=== PATIENT | female | born 1960 | race Caucasian/White ===

== ENCOUNTER 2018-01-08 08:53 | Day surgery (SDC) | payer MEDICARE, OTHER, SELFPAY ==
[2018-01-08 09:14] VITALS: BP 123/72; PULSE 65; RESP 20; TEMP 37.2; O2SAT 93
--- NOTE | 2018-01-08 09:18 | P.PN_ITS ---
[facility] Anesthesia Checklist - Patient Identification Patient Identification: Arm Band, Verbal (Name & ) - Structural Data Admitted From: Home Planned Operative Procedure/s: colonoscopy Consent for Planned Operative Procedure(s) Verified: Yes Verified Documents: Surgical Consent - NPO Status Verified Time NPO: 00:00 - Chart Verification Results Verified: CBC, BMP - Additional verifications Patient : No Anesthesia Reactions: No Hx Blood Transfusions: No Blood Transfusion Reaction: No Cephalosporin Allergy: No Previous Colonoscopy: No - Cardiovascular Assessment Heart Sounds: S1 & S2 Pulse Strength: Baseline Pulse Rhythm: Regular Peripheral Edema: No - Airway Assessment C-Spine Mobility Assessed: Yes TMJ Mobility Assessed: Yes Dentition: Good Dentition - Neurological Assessment Level of Consciousness: Awake, Alert, Appropriate Hx Seizures: No Numbness or tingling in extremities: No - Anesthesia Plan Anesthesia Risk discussed: Yes Anesthesia Plan: Verified ASA Class: II Anesthesia Type: [facility] Anesthesia HX I have reviewed the patient's past medical history: Yes Medical History: Reports:: Anxiety, Depression, Hyperlipidemia, Kidney Stones Other Medical History: Reports: Arthritis, Fibromyalgia Laterality Cases: Bilateral: Tonsillectomy Other Surgeries: Yes: Colonoscopy, EGD, Tubal Ligation, Other (ant. cervical fusion) Amputation: No Fractures: No *Family Hx:: Hypertension, Diabetes, Asthma
[2018-01-08 09:31] VITALS: O2SAT 99
--- NOTE | 2018-01-08 10:24 | HMH.SCOPE ---
- Procedure: Date: 01/08/18 Procedure Performed:: Colonoscopy with polypectomy by means other than snare (biopsy) Indications:: This is a 57-year-old female who returns for short-term repeat colonoscopy. She had a colonoscopy in October 2017 at which time adjacent complex pedunculated polyps at 20 cm were excised and found to be hyperplastic. Exceedingly poor bowel preparation was noted and visualization was limited. Performing Provider:: Jonel Greenfield MD Referring Provider:: Dr. Hook Sedation:: Monitored anesthesia care Procedure:: After informed consent was obtained, the patient was taken to the endoscopy suite. Monitored anesthesia care ensued after she was transferred to the left lateral decubitus position. Digital rectal exam revealed some hemorrhoidal cushions. The colonoscope was placed in position. The entire colon was evaluated. Bowel preparation was moderate to poor with large volume irrigation and suctioning used to improve visualization. Although visualization was somewhat limited, bowel preparation was much better than prior evaluation. Unfortunately, she also had fairly severe spasticity. A cluster polyps at 20 cm were noted and these appeared to be hyperplastic. Multiple biopsies which resulted in 3 polypectomies were taken. A distal transverse colon polyp was excised with cold biopsy forceps. A somewhat pedunculated splenic flexure polyp was excised in a piecemeal fashion utilizing cold biopsy forceps. Polyp at 7 cm was excised in a piecemeal fashion utilizing cold biopsy forceps. No additional lesions noted. The colonoscope was carefully removed and the patient was transferred to recovery. Findings:: Moderate to poor bowel preparation (improved versus prior evaluation) Fairly severe colonic spasticity Cluster polyps at 20 cm Transverse polyp Pedunculated splenic flexure polyp Polyp at 7 cm Specimens:: Cluster polyps at 20 cm Transverse polyp Pedunculated splenic flexure polyp Polyp at 7 cm Recommendations:: Consideration of barium enema secondary to fairly severe spasticity and limited visualization. Repeat colonoscopy is pending pathology but will likely be around 2-3 years if barium enema reveals no significant abnormality. Complications:: No immediate Estimated blood obtained (mL): 1
[2018-01-08 10:25] VITALS: BP 118/77; PULSE 100; RESP 16; O2SAT 95
[2018-01-08 10:40] VITALS: BP 126/72; PULSE 92; RESP 18; O2SAT 97
[2018-01-08 10:55] VITALS: BP 118/88; PULSE 90; RESP 18; O2SAT 97
== END 2018-01-08 10:55 | disposition home or self-care (01) ==
LOC: OUTP 08:55
PROVIDERS: Family Provider Emergency Medicine; PCP Emergency Medicine; Visit Provider Surgery
PROC: 0DJD8ZZ Inspection of Lower Intestinal Tract, Via Natural or Artificial Opening Endoscopic (ICD-10-PCS; principal; 2018-01-08 09:30)
DX: K58.9 Irritable bowel syndrome, unspecified (principal); K63.5 Polyp of colon
CPT/HCPCS: 45380; 88305

== ENCOUNTER → 2018-03-13 11:07 | Outpatient (CLI) | payer MEDICARE, OTHER, SELFPAY ==
--- NOTE | 2018-03-13 11:07 | MR_ITS ---
MR knee LT wo con HISTORY: The medial and lateral patellar area ITS.REASON: knee pain ORDERING PHYSICIAN: Young Jean MD PATIENT AGE: 58 years COMPARISON: [id number] TECHNIQUE: Standard multiplanar multiecho sequences are performed without contrast. FINDINGS: The cruciate ligaments, collateral ligaments, patellar and quadriceps tendon are intact. No evidence of meniscal tear. Small defect in the central aspect of the patellar cartilage with some underlying increased T2 signal involving the adjacent patella consistent with chondromalacia patella. There is a small knee joint effusion. No bone marrow edema evident of the distal femur or proximal tibia. The joint spaces are well-preserved. IMPRESSION: 1. 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 2. Otherwise negative MRI of the left knee
== END ==
PROVIDERS: Family Provider Emergency Medicine; PCP Emergency Medicine; Visit Provider Orthopaedic Surgery
DX: M25.562 Pain in left knee (principal); G89.29 Other chronic pain
CPT/HCPCS: 73721

== ENCOUNTER → 2018-04-06 15:15 | Outpatient (REF) | payer MEDICARE, OTHER, SELFPAY ==
[2018-04-06 21:59] LABS: Amphetamine/Metha Screen,Urine Negative ng/mL (<1000); Barbiturates Screen,Urine Negative ng/mL (<200); Benzodiazepines Screen,Urine Positive ng/mL (200); Cannabinoid Screen,Urine Negative ng/mL (<50); Cocaine Screen,Urine Negative ng/g (<300); Methadone Screen,Urine Negative ng/mL (<300); Opiate Screen,Urine Negative ng/mL (<300); Phencyclidine Screen,Urine Negative ng/mL (<25)
== END ==
LOC: LAB 15:15
PROVIDERS: Visit Provider Emergency Medicine
DX: Z79.899 Other long term (current) drug therapy (principal)
CPT/HCPCS: 80305

== ENCOUNTER → 2018-04-24 12:49 | Outpatient (CLI) | payer MEDICARE, OTHER, SELFPAY ==
--- NOTE | 2018-04-24 12:53 | XR_ITS ---
EXAM: XR thoracic spine 3V HISTORY: ITS.REASON: Back Pain Comparison: None FINDINGS: Normal alignment. No fracture or dislocation. No lytic or blastic change. No significant degenerative change. The disc spaces are preserved. There is been a previous anterior cervical fusion C6 and 7 IMPRESSION: No acute finding
--- NOTE | 2018-04-24 12:53 | XR_ITS ---
XR ribs LT 2V COMPARISON: PA and lateral chest same date HISTORY: Left sided rib pain TECHNIQUE: Oblique views of the left ribs FINDINGS: All the left ribs 1 through 12 are visualized and appear intact with no evidence of recent or old fracture. The left lung field is clear and is no pneumothorax. The soft tissues in the chest wall appear normal. IMPRESSION: Negative left ribs 1 through 12
--- NOTE | 2018-04-24 12:53 | XR_ITS ---
XR chest 2V HISTORY: ITS.REASON: Pain under rib ORDERING PHYSICIAN: Christopher Hook MD PATIENT AGE: 58 years COMPARISON: PA and lateral chest 05/04/2009 FINDINGS: The cardiomediastinal silhouette and pulmonary vascularity are within normal limits. The lungs are clear without infiltrates, suspicious nodules, or pleural effusions. No acute bony abnormalities. There is been previous anterior cervical fusion C6 and 7 IMPRESSION: Negative chest, no acute finding
== END ==
PROVIDERS: PCP Emergency Medicine; Visit Provider Emergency Medicine
DX: R07.81 Pleurodynia (principal); M54.6 Pain in thoracic spine
CPT/HCPCS: 71046; 71100; 72072

== ENCOUNTER → 2018-05-08 12:58 | Outpatient (CLI) | payer MEDICARE, OTHER, SELFPAY ==
--- NOTE | 2018-05-08 13:00 | MR_ITS ---
MR cervical spine wo con, MR 3-d myelogram/MRCP HISTORY: PT states neck and mid back pain since OCT. All pain is mostly on left side. LT arm pain, numbness and tingling at times. PT states prior neck surgery in 2016. ITS.REASON: neck pain ORDERING PHYSICIAN: Christopher Hook MD PATIENT AGE: 58 years Comparison: None TECHNIQUE: Standard multiplanar multiecho sequences are performed without contrast. 3-D MIP and myelographic images are also rendered and reviewed FINDINGS: There is normal alignment. Craniocervical junction has an unremarkable appearance. There is a small T2 hyperintensities involving the base of the odontoid and may be due to a small subcortical cyst at 3 mm. C2-C3: Mild degenerative disc disease Small left disc osteophyte complex at the uncovertebral region causing mild left-sided foraminal narrowing. C3-C4: Mild degenerative disc disease with minimal bulging disc. C4-C5 degenerative disc disease with minimal bulging disc. C5-C6: Prior anterior cervical disc fusion with prominent artifact. Mild uncovertebral hypertrophy on the left with mild left-sided foraminal narrowing. C6-C7: Degenerative disc disease. IMPRESSION: 1. No canal stenosis or disc herniation evident. 2. Prior anterior cervical disc fusion at 3. Spondylosis of the cervical spine with degenerative disc disease from C2-C7 with minimal bulging discs. 4. Small left disc osteophyte complex at C3-C4 at the uncovertebral region causing mild left-sided foraminal narrowing.
--- NOTE | 2018-05-08 13:00 | MR_ITS ---
MR thoracic spine wo con HISTORY: Mid back pain, left-sided back pain, pain starts under ribs on left side and extend to front of body ITS.REASON: back pain ORDERING PHYSICIAN: Christopher Hook MD PATIENT AGE: 58 years Comparison: X-RAY 04/24/18 TECHNIQUE: Standard multiplanar multiecho sequences are performed without contrast. 3-D MIP and myelographic images are also rendered and reviewed FINDINGS: Normal alignment. No fracture or dislocation. No disc herniation or canal stenosis. No significant degenerative change. IMPRESSION: Negative MRI of the thoracic spine
== END ==
PROVIDERS: Family Provider Emergency Medicine; PCP Emergency Medicine; Visit Provider Emergency Medicine
DX: M54.2 Cervicalgia (principal); M54.6 Pain in thoracic spine
CPT/HCPCS: 72141; 72146; 76376

== ENCOUNTER → 2018-05-25 14:44 | Outpatient (REF) | payer MEDICARE, OTHER, SELFPAY ==
[2018-05-25 17:47] LABS: Amphetamine/Metha Screen,Urine Negative ng/mL (<1000); Barbiturates Screen,Urine Negative ng/mL (<200); Benzodiazepines Screen,Urine Positive ng/mL (<200); Cannabinoid Screen,Urine Negative ng/mL (<50); Cocaine Screen,Urine Negative ng/mL (<300); Methadone Screen,Urine Negative ng/mL (<300); Opiate Screen,Urine Positive ng/mL (<300); Phencyclidine Screen,Urine Negative ng/mL (<25)
== END ==
LOC: LAB 14:44
PROVIDERS: Visit Provider Emergency Medicine
DX: Z79.899 Other long term (current) drug therapy (principal)
CPT/HCPCS: 80305

== ENCOUNTER → 2018-06-15 13:56 | Outpatient (POV) | payer MEDICARE, OTHER, SELFPAY ==
[2018-06-15 14:11] VITALS: BP 140/96; PULSE 87; RESP 18; O2SAT 98
--- NOTE | 2018-06-16 12:44 | HMH.PMCON ---
Assessment and Plan (1) Degenerative disc disease, cervical Current visit: Yes Status: Chronic Category: Medical Code(s): M50.30 - Other cervical disc degeneration, unspecified cervical region - Assessment and plan all Dx Assessment and Plan for all problems:: We will schedule C5-C6 cervical epidural steroid injection for the patient. Patient's tried and failed chiropractic therapy, physical therapy, medications, anti-inflammatories. Patient is not diabetic nor is she on any anticoagulation therapy. I believe that this would be beneficial for her given the therapy she is tried. Patient is continuing a home stretching therapy. I will follow-up with the patient 2 weeks after her injection. We will reassess her symptoms at that time. This note was dictated using voice recognition software and may contain errors or omissions HPI - Data of Consult Consult date: 06/16/18 Requesting Physician: Rachel Eagle APRN Primary Care Provider: Christopher Hook MD Family Provider: Christopher Hook MD - Consult Narrative Reason for consult: Back pain History of present illness: Ms. Holliday is a 58 year old female resents today for consultation in regards to her neck pain. Patient does have pain down her left arm. Patient had a fall back in August 2017. Patient has had increased pain ever since. She states that her pain is a 6 out of 10 today. He states that standing for long periods of time make it worse while medications and her heating pad make it better. Patient currently on gabapentin 800 mg 1 p.o. 3 times daily alprazolam 0.5 mg 1 p.o. 3 times daily and [place] 5 mg 1 p.o. twice daily from her primary care physician. Patient has tried and failed Lyrica due to side effects. Patient's tried and failed chiropractic and physical therapy. CC: Rachel Eagle APRN [facility] History I have reviewed the patient's past medical history: Yes Medical History: Reports:: Anxiety, Depression, Hyperlipidemia, Kidney Stones Denies:: Diabetes Mellitus Type 1, Diabetes Mellitus Type 2, Internal Pacemaker, Lung Disease, Seizures Other Medical History: Reports: Arthritis, Fibromyalgia. Denies: Blood Transfusion Reaction Laterality Cases: Bilateral: Tonsillectomy Other Surgeries: Yes: Colonoscopy, EGD, Tubal Ligation, Other (Disc infusion neck.). No: Pacemaker Amputation: No Fractures: No - *Social History Smoking Status: Never smoker Tobacco Type: cigarettes # Packs/Day (cigarettes): 1 Alcohol Intake: never Alcohol Intake Frequency:: other Substance Use Type: denies use Occupational Status: disabled Housing: house Household Members: spouse - Psychiatric History Expresses thoughts of harming self/others: None Suicide Plan Description: No Plan Pschychiatric History:: Reports:: Anxiety, Depression *Family Hx:: Cancer Review of Systems - Review of Systems ROS General: no recent weight change, no fever, no sleep disturbances Respiratory: no cough, no shortness of air, no recurring pulmonary infections Cardiovascular/Peripheral Vascular: No chest pain, No palpitations, no edema, no shortness of breath. Gastrointestinal: no incontinence, normal bowel movements reported Genitourinary: no incontinence Musculoskeletal: Neck pain, left arm pain Psychiatric: normal mood/ affect Neurological: [denies weakness in extremities], [denies balance issues] Meds Allergies Allergy/AdvReac Type Severity Reaction Status Date / Time No Known Allergies Allergy Verified 05/25/18 14:50 Objective Vital signs: Pulse Resp BP Pulse Ox 87 18 140/96 98 06/15/18 14:11 06/15/18 14:11 06/15/18 14:11 06/15/18 14:11 Narrative: Physical Exam General: Alert and oriented x3, no acute distress, pleasant and cooperative, [on room air] Lungs: Resps E/U, Symmetrical chest expansion, Eyes: PERRL Musculoskeletal: Flexion and extension of cervical spine somewhat guarded secondary to pain, deep tendon r
--- NOTE | 2018-06-16 12:53 | P.CONS_ITS ---
Assessment and Plan (1) Degenerative disc disease, cervical Current visit: Yes Status: Chronic Category: Medical Code(s): M50.30 - Other cervical disc degeneration, unspecified cervical region - Assessment and plan all Dx Assessment and Plan for all problems:: We will schedule C5-C6 cervical epidural steroid injection for the patient. Patient's tried and failed chiropractic therapy, physical therapy, medications, anti-inflammatories. Patient is not diabetic nor is she on any anticoagulation therapy. I believe that this would be beneficial for her given the therapy she is tried. Patient is continuing a home stretching therapy. I will follow-up with the patient 2 weeks after her injection. We will reassess her symptoms at that time. This note was dictated using voice recognition software and may contain errors or omissions HPI - Data of Consult Consult date: 06/16/18 Requesting Physician: Rachel Eagle APRN Primary Care Provider: Christopher Hook MD Family Provider: Christopher Hook MD - Consult Narrative Reason for consult: Back pain History of present illness: Ms. Holliday is a 58 year old female resents today for consultation in regards to her neck pain. Patient does have pain down her left arm. Patient had a fall back in August 2017. Patient has had increased pain ever since. She states that her pain is a 6 out of 10 today. He states that standing for long periods of time make it worse while medications and her heating pad make it better. Patient currently on gabapentin 800 mg 1 p.o. 3 times daily alprazolam 0.5 mg 1 p.o. 3 times daily and [place] 5 mg 1 p.o. twice daily from her primary care physician. Patient has tried and failed Lyrica due to side effects. Patient's tried and failed chiropractic and physical therapy. CC: Rachel Eagle APRN [facility] History I have reviewed the patient's past medical history: Yes Medical History: Reports:: Anxiety, Depression, Hyperlipidemia, Kidney Stones Denies:: Diabetes Mellitus Type 1, Diabetes Mellitus Type 2, Internal Pacemaker, Lung Disease, Seizures Other Medical History: Reports: Arthritis, Fibromyalgia. Denies: Blood Transfusion Reaction Laterality Cases: Bilateral: Tonsillectomy Other Surgeries: Yes: Colonoscopy, EGD, Tubal Ligation, Other (Disc infusion neck.). No: Pacemaker Amputation: No Fractures: No - *Social History Smoking Status: Never smoker Tobacco Type: cigarettes # Packs/Day (cigarettes): 1 Alcohol Intake: never Alcohol Intake Frequency:: other Substance Use Type: denies use Occupational Status: disabled Housing: house Household Members: spouse - Psychiatric History Expresses thoughts of harming self/others: None Suicide Plan Description: No Plan Pschychiatric History:: Reports:: Anxiety, Depression *Family Hx:: Cancer Review of Systems - Review of Systems ROS General: no recent weight change, no fever, no sleep disturbances Respiratory: no cough, no shortness of air, no recurring pulmonary infections Cardiovascular/Peripheral Vascular: No chest pain, No palpitations, no edema, no shortness of breath. Gastrointestinal: no incontinence, normal bowel movements reported Genitourinary: no incontinence Musculoskeletal: Neck pain, left arm pain Psychiatric: normal mood/ affect Neurological: [denies weakness in extremities], [denies balance issues] Meds Allergies Allergy/AdvReac Type Severity Reaction Status Date / Time No Known Allergies Allergy Verified 05/25/18 14:50
== END ==
PROVIDERS: Family Provider Emergency Medicine; PCP Emergency Medicine; Visit Provider Clinical Nurse Specialist Family Health
DX: M50.30 Other cervical disc degeneration, unspecified cervical region (principal)
CPT/HCPCS: 99202

== ENCOUNTER → 2018-08-17 14:40 | Outpatient (POV) | payer MEDICARE, OTHER, SELFPAY ==
[2018-08-17 15:13] VITALS: BP 152/96; PULSE 85; RESP 18; O2SAT 97; BMI 28.7
--- NOTE | 2018-08-17 15:30 | XR_ITS ---
XR shoulder LT min 2V HISTORY: ITS.REASON: LEFT SHOULDER PAIN ORDERING PHYSICIAN: Rachel Eagle PATIENT AGE: 58 years FINDINGS: No fracture or dislocation. No lytic or blastic change. There is normal mineralization. The joint spaces are well-preserved. No significant degenerative/arthritic changes. No erosive changes evident. No subacromial stenosis There is a bone plate over the lower cervical spine IMPRESSION: Negative, no acute finding
--- NOTE | 2018-08-18 08:28 | HMH.PAINSOAP ---
[facility] Pain Management SOAP Note Subjective:: Patient is a pleasant 58-year-old white female who presents today after cervical epidural steroid injection. Patient states she has 100% relief of the pain in her neck however she is having continual left shoulder pain. Patient has limited range of motion on the left side. Patient has not had any imaging of her shoulder. I do have some concerns in regard to pain. Patient is completed physical therapy this. Patient will be sent today for an x-ray and then an MRI of her left shoulder. Patient rates her pain an 8-10. ROS General: no recent weight change, no fever, no sleep disturbances Respiratory: no cough, no shortness of air, no recurring pulmonary infections Cardiovascular/Peripheral Vascular: No chest pain, No palpitations, no edema, no shortness of breath. Gastrointestinal: no incontinence, normal bowel movements reported Genitourinary: no incontinence Musculoskeletal: Shoulder pain Psychiatric: normal mood/ affect Neurological: [denies weakness in extremities], [denies balance issues] Objective:: Physical Exam General: Alert and oriented x3, no acute distress, pleasant and cooperative, [on room air] Lungs: Resps E/U, Symmetrical chest expansion, Eyes: PERRL Musculoskeletal: Range of motion left shoulder guarded secondary to pain, deep tendon reflexes normal, strength in upper and lower extremities [5/5], normal gait noted Neurological: speech clear, office services associate equal, no gross sensory deficits Assessment:: Left shoulder pain, degenerative disc disease cervical spine Plan:: We will schedule an MRI for the patient's left shoulder and send her to an orthopedic surgeon if necessary. I will follow-up with her after her MRI. We will also call in [facility] for her to utilize to help relieve some of the pain. This note was dictated using voice recognition software and may contain errors or omissions
== END ==
PROVIDERS: Family Provider Emergency Medicine; PCP Emergency Medicine; Visit Provider Clinical Nurse Specialist Family Health
DX: M25.512 Pain in left shoulder (principal); M50.30 Other cervical disc degeneration, unspecified cervical region
CPT/HCPCS: 73030; 99213

== ENCOUNTER → 2018-08-24 13:30 | Outpatient (CLI) | payer MEDICARE, OTHER, SELFPAY ==
--- NOTE | 2018-08-24 13:34 | MR_ITS ---
MR shoulder LT wo con HISTORY:Left shoulder pain and weakness with limited range of motion ITS.REASON: LT SHOULDER PAIN ORDERING PHYSICIAN: Rachel Egale PATIENT AGE: 58 years Comparison: 08/17/2018 TECHNIQUE: Standard multiplanar multiecho sequences are performed without contrast. FINDINGS: There is mild subacromial stenosis of 5 mm. There is mild thickening of the supraspinatus and infraspinatus tendons with slight increase in T2 signal consistent with mild tendinopathy/tendinosis. No evidence of rotator cuff tear. Small subcortical cystic changes are present in the humeral head. The subscapularis and teres minor tendon appears intact. No obvious labral tear. No significant effusion. The bicipital tendon is in place. IMPRESSION: 1. Mild subacromial stenosis with mild tendinopathy/tendinosis of the supraspinatus and infraspinatus tendons. 2. No evidence of rotator cuff tear. 3. Small subcortical cyst within the humeral head
== END ==
PROVIDERS: Family Provider Emergency Medicine; PCP Emergency Medicine; Visit Provider Clinical Nurse Specialist Family Health
DX: M25.512 Pain in left shoulder (principal)
CPT/HCPCS: 73221

== ENCOUNTER → 2018-09-04 17:26 | Outpatient (CLI) | payer MEDICARE, OTHER, SELFPAY ==
[2018-09-04 18:26] LABS: Amphetamine/Metha Screen,Urine Negative ng/mL (<1000); Barbiturates Screen,Urine Negative ng/mL (<200); Benzodiazepines Screen,Urine Positive ng/mL (<200); Cannabinoid Screen,Urine Negative ng/mL (<50); Cocaine Screen,Urine Negative ng/mL (<300); Methadone Screen,Urine Negative ng/mL (<300); Opiate Screen,Urine Positive ng/mL (<300); Phencyclidine Screen,Urine Negative ng/mL (<25)
== END ==
PROVIDERS: PCP Emergency Medicine; Visit Provider Emergency Medicine
DX: Z79.899 Other long term (current) drug therapy (principal)
CPT/HCPCS: 80305

== ENCOUNTER → 2018-09-21 13:23 | Outpatient (POV) | payer MEDICARE, OTHER, SELFPAY ==
--- NOTE | 2018-09-21 13:57 | HMH.PAINSOAP ---
[facility] Pain Management SOAP Note Subjective:: She is a pleasant 58-year-old white female who presents today for follow-up in regards to her left shoulder MRI. Patient does not have a rotator cuff tear. Patient still having some pain. Patient is interested in injections to see if this would be beneficial for her. She rates her pain a 6 out of 10. Patient states that her Voltaren gel is working extremely well for her. Patient has had a cervical epidural steroid injection where she states her pain has been relieved completely from her neck. ROS General: no recent weight change, no fever, no sleep disturbances Respiratory: no cough, no shortness of air, no recurring pulmonary infections Cardiovascular/Peripheral Vascular: No chest pain, No palpitations, no edema, no shortness of breath. Gastrointestinal: no incontinence, normal bowel movements reported Genitourinary: no incontinence Musculoskeletal: Shoulder pain left side Psychiatric: normal mood/ affect Neurological: [denies weakness in extremities], [denies balance issues] Objective:: Physical Exam General: Alert and oriented x3, no acute distress, pleasant and cooperative, [on room air] Lungs: Resps E/U, Symmetrical chest expansion, Eyes: PERRL Musculoskeletal: Motion left shoulder somewhat guarded secondary to pain, deep tendon reflexes normal, strength in upper and lower extremities [5/5], normal gait noted Neurological: speech clear, field advisor equal, no gross sensory deficits Assessment:: Left shoulder pain, mild subacromial stenosis and tendinopathy, cervical degenerative disc disease Plan:: We will schedule her for left shoulder injection. Patient is to continue with her Voltaren. I will follow-up with her after her injection. This note was dictated using voice recognition software and may contain errors or omissions
--- NOTE | 2018-09-21 14:00 | P.CONS_ITS ---
[facility] Pain Management SOAP Note Subjective:: She is a pleasant 58-year-old white female who presents today for follow-up in regards to her left shoulder MRI. Patient does not have a rotator cuff tear. Patient still having some pain. Patient is interested in injections to see if this would be beneficial for her. She rates her pain a 6 out of 10. Patient states that her Voltaren gel is working extremely well for her. Patient has had a cervical epidural steroid injection where she states her pain has been relieved completely from her neck. ROS General: no recent weight change, no fever, no sleep disturbances Respiratory: no cough, no shortness of air, no recurring pulmonary infections Cardiovascular/Peripheral Vascular: No chest pain, No palpitations, no edema, no shortness of breath. Gastrointestinal: no incontinence, normal bowel movements reported Genitourinary: no incontinence Musculoskeletal: Shoulder pain left side Psychiatric: normal mood/ affect Neurological: [denies weakness in extremities], [denies balance issues] Objective:: Physical Exam General: Alert and oriented x3, no acute distress, pleasant and cooperative, [on room air] Lungs: Resps E/U, Symmetrical chest expansion, Eyes: PERRL Musculoskeletal: Motion left shoulder somewhat guarded secondary to pain, deep tendon reflexes normal, strength in upper and lower extremities [5/5], normal gait noted Neurological: speech clear, procurement internship equal, no gross sensory deficits Assessment:: Left shoulder pain, mild subacromial stenosis and tendinopathy, cervical degenerative disc disease Plan:: We will schedule her for left shoulder injection. Patient is to continue with her Voltaren. I will follow-up with her after her injection. This note was dictated using voice recognition software and may contain errors or omissions
[2018-09-21 14:22] VITALS: BP 136/67; PULSE 83; RESP 18; O2SAT 98; BMI 28.7
== END ==
PROVIDERS: PCP Emergency Medicine; Visit Provider Clinical Nurse Specialist Family Health
DX: M25.512 Pain in left shoulder (principal); M75.41 Impingement syndrome of right shoulder; M50.10 Cervical disc disorder with radiculopathy, unspecified cervical region
CPT/HCPCS: 99213

== ENCOUNTER → 2018-10-02 17:48 | Outpatient (CLI) | payer MEDICARE, OTHER, SELFPAY ==
[2018-10-02 19:14] LABS: Amphetamine/Metha Screen,Urine Negative ng/mL (<1000); Barbiturates Screen,Urine Negative ng/mL (<200); Benzodiazepines Screen,Urine Positive ng/mL (<200); Cannabinoid Screen,Urine Negative ng/mL (<50); Cocaine Screen,Urine Negative ng/mL (<300); Methadone Screen,Urine Negative ng/mL (<300); Opiate Screen,Urine Positive ng/mL (<300); Phencyclidine Screen,Urine Negative ng/mL (<25)
== END ==
PROVIDERS: Visit Provider Emergency Medicine
DX: Z79.899 Other long term (current) drug therapy (principal)
CPT/HCPCS: 80305

== ENCOUNTER → 2018-12-28 13:40 | Outpatient (POV) | payer MEDICARE, OTHER, SELFPAY ==
[2018-12-28 13:53] VITALS: BP 157/88; PULSE 75; RESP 18; O2SAT 98; BMI 19.2
--- NOTE | 2018-12-28 13:57 | HMH.PAINSOAP ---
[facility] Pain Management SOAP Note Subjective:: Patient is a pleasant 58-year-old white female who presents today for follow-up after left shoulder injection. Patient is having no pain in her shoulder she is having a lot of pain in her bicep. She states that the burning and feels like it is asleep. Patient has multiple imaging of her shoulder and cervical spine. Patient is having some weakness on that side. Patient has not had a nerve conduction study I believe it would be beneficial to help rule out entrapment. She rates her pain a 6 out of 10. ROS General: no recent weight change, no fever, no sleep disturbances Respiratory: no cough, no shortness of air, no recurring pulmonary infections Cardiovascular/Peripheral Vascular: No chest pain, No palpitations, no edema, no shortness of breath. Gastrointestinal: no incontinence, normal bowel movements reported Genitourinary: no incontinence Musculoskeletal: Left bicep pain Psychiatric: normal mood/ affect Neurological: [denies weakness in extremities], [denies balance issues] Objective:: Physical Exam General: Alert and oriented x3, no acute distress, pleasant and cooperative, [on room air] Lungs: Resps E/U, Symmetrical chest expansion, Eyes: PERRL Musculoskeletal: Flexion and extension of cervical spine somewhat guarded secondary to pain, deep tendon reflexes normal, strength in upper and lower extremities [5/5], [abnormal gait noted] Neurological: speech clear, right short range air defense artillery greater than left short range air defense artillery, no gross sensory deficits Assessment:: Left shoulder pain, left bicep pain neuropathy Plan:: We will send the patient to Dr. Joseph for a conduction study. I will follow-up with the patient after this. Dr. Yadav has reviewed this note and agrees with this plan of care. This note was dictated using voice recognition software and may contain errors or omissions
== END ==
PROVIDERS: PCP Emergency Medicine; Visit Provider Clinical Nurse Specialist Family Health
DX: M25.512 Pain in left shoulder (principal); G62.9 Polyneuropathy, unspecified
CPT/HCPCS: 99213

== ENCOUNTER → 2019-01-13 17:09 | Outpatient (CLI) | payer MEDICARE, OTHER, SELFPAY ==
[2019-01-13 18:27] LABS: Amphetamine/Metha Screen,Urine Negative ng/mL (<1000); Barbiturates Screen,Urine Negative ng/mL (<200); Benzodiazepines Screen,Urine Positive ng/mL (<200); Cannabinoid Screen,Urine Negative ng/mL (<50); Cocaine Screen,Urine Negative ng/mL (<300); Methadone Screen,Urine Negative ng/mL (<300); Opiate Screen,Urine Positive ng/mL (<300); Phencyclidine Screen,Urine Negative ng/mL (<25)
== END ==
PROVIDERS: Visit Provider Emergency Medicine
DX: Z79.899 Other long term (current) drug therapy (principal)
CPT/HCPCS: 80305

== ENCOUNTER → 2019-03-22 18:18 | Outpatient (CLI) | payer MEDICARE, OTHER, SELFPAY ==
[2019-03-22 19:25] LABS: Amphetamine/Metha Screen,Urine Negative ng/mL (<1000); Barbiturates Screen,Urine Negative ng/mL (<200); Benzodiazepines Screen,Urine Positive ng/mL (<200); Cannabinoid Screen,Urine Negative ng/mL (<50); Cocaine Screen,Urine Negative ng/mL (<300); Methadone Screen,Urine Negative ng/mL (<300); Opiate Screen,Urine Positive ng/mL (<300); Phencyclidine Screen,Urine Negative ng/mL (<25)
== END ==
PROVIDERS: Visit Provider Emergency Medicine
DX: Z79.899 Other long term (current) drug therapy (principal)
CPT/HCPCS: 80305

== ENCOUNTER → 2019-04-01 13:04 | Outpatient (CLI) | payer MEDICARE, OTHER, SELFPAY ==
--- NOTE | 2019-04-01 13:13 | XR_ITS ---
XR knee LT 4V HISTORY: ITS.REASON: left knee pain ORDERING PHYSICIAN: Young Jean MD PATIENT AGE: 59 years COMPARISON: None FINDINGS: No fracture or dislocation. No lytic or blastic change. Normal mineralization. No significant arthritic changes evident. There may be a small suprapatellar effusion IMPRESSION: Possible small suprapatellar effusion otherwise negative left knee
== END ==
PROVIDERS: PCP Emergency Medicine; Visit Provider Orthopaedic Surgery
DX: M25.562 Pain in left knee (principal)
CPT/HCPCS: 73564

== ENCOUNTER 2019-04-03 19:43 | Emergency (ER) | payer MEDICARE, OTHER, SELFPAY ==
[2019-04-03 19:46] VITALS: BMI 31.6
--- NOTE | 2019-04-03 19:47 | CT_ITS ---
CT abdomen pelvis wo con CLINICAL INDICATION: Left lower flank pain ITS.REASON: flanks pain ORDERING PHYSICIAN: Christopher Melendez MD PATIENT AGE: 59 years COMPARISON: 04/21/2016 TECHNIQUE: Axial images obtained with sagittal and coronal reformats. All CT scans at the facility use one or more dose reduction, viz: automated exposure control, ma/kV adjustment per patient size (including targeted exams where dose is matched to indication, i.e. head), or iterative reconstruction technique. PROCEDURE: Oral Contrast: None IV Contrast: None . FINDINGS: Lower thorax: No acute finding The liver, spleen, adrenal glands, and pancreas have an unremarkable appearance. There are a few small dependent hyperdensities of the gallbladder suggesting gallstones which may be confirmed with ultrasound. There are multiple right renal calculi with the largest stone in the upper pole at 9 mm. No left renal calculi. There is however a small linear stone measuring 4 mm at the left ureterovesical junction with minimal ectasia of the left renal collecting system. In addition, there is a 3 to 4 mm stone in the lower left ureter just inferior to the SI joint. No evidence of appendicitis, intestinal obstruction, free air, or diverticulitis. There is a well-circumscribed subcortical lucency of the left femoral neck suggesting a benign cystic lesion unchanged. IMPRESSION: 1. There are at least 2 linear left ureteral calculi one in the mid to lower aspect 4 mm and one at the ureterovesical junction at 4 to 5 mm. There is only minimal ectasia of the left renal collecting system. 2. Right nephrolithiasis
[2019-04-03 19:48] VITALS: BP 167/93; PULSE 70; RESP 18; TEMP 36.4; O2SAT 97; BMI 29.4
[2019-04-03 20:00] LABS: Microscopic, Urine URINE MICROSCOPIC (MICROSCOPIC)
[2019-04-03 20:01] LABS: Basophils # 0.1 K/mm3 (0-0.2); Basophils % 0.5 % (0.1-2.0); Eosinophils # 0.2 K/mm3 (0.0-0.4); Eosinophils % 1.4 % (0.1-12.0); Hematocrit 46.9 % (37.0-47.0); Hemoglobin 16.7 g/dL (12.2-16.2); Lymphocytes # 5.6 K/mm3 (0.7-4.5); Lymphocytes % 35.9 % (10-50); Mean Corpuscular HGB Conc 35.5 g/dL (31.8-35.4); Mean Corpuscular Hemoglobin 30.7 pg (27.0-31.2); Mean Corpuscular Volume 86.3 fl (81-99); Mean Platelet Volume 6.9 fl (7.4-10.4); Monocytes # 0.8 K/mm3 (0.1-1.0); Monocytes % 5.2 % (1.7-9.3); Neutrophils # 8.9 K/mm3 (1.8-7.8); Platelet Count 369 K/mm3 (142-424); Red Blood Count 5.44 M/mm3 (4.20-5.40); White Blood Count 15.6 K/mm3 (4.8-10.8)
[2019-04-03 20:06] LABS: MANUAL DIFFERENTIAL MANUAL DIFFERENTIAL (MANUAL DIFF)
[2019-04-03 20:15] LABS: Appearance,Urine CLEAR (Clear); Bilirubin,Urine Negative (Negative); Blood, Urine 2+ (Negative); Color,Urine YELLOW (Yellow); Glucose,Urine (UA) Negative (Negative); Ketones,Urine Negative (Negative); Leukocyte Esterase,Urine TRACE (Negative); Nitrate,Urine POSITIVE (Negative); Protein,Urine 1+ (Negative); Urobilinogen,Urine 0.2 EU/dl (0.2)
[2019-04-03 20:18] LABS: Amorphous Sediment,Urine Trace /lpf; Bacteria,Urine Trace /lpf
[2019-04-03 20:19] LABS: Alanine Aminotransferase 32 U/L (12-78); Albumin Level 4.2 gm/dL (3.4-5.0); Albumin/Globulin Ratio 1.2 (1.1-1.8); Alkaline Phosphatase 59 U/L (46-116); Amylase 65 U/L (25-115); Anion Gap 16.6 mEq/L (5-15); Aspartate Amino Transferase 16 U/L (15-37); Bilirubin,Total 0.3 mg/dL (0.2-1.0); Blood Urea Nitrogen 12 mg/dL (7-18); Calcium 9.1 mg/dL (8.5-10.1); Carbon Dioxide 24 mmol/L (21.0-32.0); Chloride 105 mmol/L (98-107); Creatinine Clearance Estimated 78 mL/min (50-200); Creatinine,Serum 1.14 mg/dL (0.55-1.02); Estimated Glomerular Filt Rate 49 ml/min (>60); GFR (African American) 59 ML/MIN (>60); Globulin 3.6 gm/dl (1.3-3.2); Glucose 104 mg/dL (74-106); Lipase 289 u/L (73-393); Potassium 3.6 mmoL/L (3.5-5.1); Sodium 142 mmol/L (136-145); Total Protein,Serum 7.8 gm/dL (6.4-8.2)
[2019-04-03 20:27] LABS: Lymphocytes % 23 % (10-50); Monocytes % 8 % (2-9); Neutrophils % 66 % (42-76); Total Cells Counted 100
[2019-04-03 20:28] LABS: Platelet Estimate Normal; RBC Morphology Normal
--- NOTE | 2019-04-03 20:32 | HMH.EDGENADL ---
ED Disposition Clinical Impression: Kidney stone Clinical Impression: (Ruled Out): Kidney stone on left side Disposition: Home, Self-Care Condition on Discharge: Good Instructions: Kidney Stones -- Adult Referrals: Christopher Hook MD [Primary Care Provider] - Time of Disposition: 22:06 - Critical Care Critical Care Time: No Attestation: On 04/03/19, the high probability of a clinically significant, sudden or life threatening deterioration of the following system(s) required my full and direct attention, intervention and personal management. The time I documented below is in addition to time spent performing reported procedures but includes the following listed in this critical care notation. Medical Decision Making - Medical Records Medical records reviewed: Yes: I reviewed the patient's medical records. - Joon Inquiry Pt receiving controlled substance: Yes Joon was queried for this patient: Yes Reference #:: [id number] Risks and benefits of using a controlled substance: were not discussed with pt by me Comment: hydro and stranding, will give two days of higher dose pain reliever Vital Signs: 04/03/19 19:48 04/03/19 20:35 04/03/19 22:14 Temperature 97.6 F 98.3 F Temperature Source Oral Oral Pulse Rate 70 Pulse Rate [Right Brachial] 70 70 Respiratory Rate 18 18 17 Blood Pressure 124/78 Blood Pressure [Right Arm] 167/93 H 139/86 Blood Pressure Mean [Right Arm] 117 103 Blood Pressure Source [Right Arm] Automatic Cuff Automatic Cuff Blood Pressure Position [Right Arm] Sitting Sitting 02 Sat by Pulse Oximetry 97 97 Oxygen Delivery Method Room Air Room Air Room Air - Lab Data Lab results reviewed: Yes: I reviewed the patient's lab results. Lab Results 04/03/19 19:50: Urine Color Yellow, Urine Appearance Clear, Urine pH 6.0, Ur Specific [place] 1.020, Urine Protein 1+, Urine Glucose (UA) Negative, Urine Ketones Negative, Urine Blood 2+, Urine Nitrate Positive, Urine Bilirubin Negative, Urine Urobilinogen 0.2, Ur Leukocyte Esterase Trace, Urine RBC 10-20, Urine WBC 5-10, Amorphous Sediment Trace, Urine Bacteria Trace 04/03/19 19:50: WBC 15.6 H, RBC 5.44 H, Hgb 16.7 H, Hct 46.9, MCV 86.3, MCH 30.7, MCHC 35.5 H, RDW 14.0, Plt Count 369, MPV 6.9 L, Neut % (Auto) 57.0, Lymph % (Auto) 35.9, Ada % (Auto) 5.2, Eos % (Auto) 1.4, Baso % (Auto) 0.5, Neut # (Auto) 8.9 H, Lymph # (Auto) 5.6 H, Ada # (Auto) 0.8, Eos # (Auto) 0.2, Baso # (Auto) 0.1, Total Counted 100, Neutrophils % (Manual) 66, Band Neutrophils % 3.0, Lymphocytes % (Manual) 23, Monocytes % (Manual) 8, Platelet Estimate Normal, RBC Morphology Normal 04/03/19 19:50: Sodium 142, Potassium 3.6, Chloride 105, Carbon Dioxide 24, Anion Gap 16.6 H, BUN 12, Creatinine 1.14 H, Estimated Creat Clear 78, Estimated GFR 49 L, Est GFR ( Amer) 59, Glucose 104, Calcium 9.1, Total Bilirubin 0.3, AST 16, ALT 32, Alkaline Phosphatase 59, Total Protein 7.8, Albumin 4.2, Globulin 3.6 H, Albumin/Globulin Ratio 1.2, Amylase 65, Lipase 289 Result diagrams: 04/03/19 19:50 04/03/19 19:50 Orders (Tests/Meds): ED MEDICATIONS Discontinued Medications Generic Name Dose Route Start Last Admin Trade Name Freq PRN Reason Stop Dose Admin Sodium Chloride 1,000 mls @ 999 mls/hr 04/03/19 20:00 04/03/19 19:57 Sod Chlor 0.9% 1000ml Bag IV 04/03/19 21:00 999 mls/hr .Q1H1M BUZZ Administration Ketorolac Tromethamine 30 mg 04/03/19 19:49 04/03/19 19:57 Toradol 30mg/Ml Vial IV 04/03/19 19:50 30 mg ONCE ONE Administration Morphine Sulfate 4 mg 04/03/19 20:27 04/03/19 20:34 Morphine 4mg/Ml Syringe IV 04/03/19 20:28 4 mg ONCE ONE Administration Ondansetron HCl 4 mg 04/03/19 19:49 04/03/19 19:57 Zofran 4mg/2ml Vial IV 04/03/19 19:50 4 mg ONCE ONE Administration Tamsulosin HCl 0.4 mg 04/03/19 21:00 04/03/19 20:34 Flomax 0.4mg Capsule PO 05/03/19 20:59 0.4 mg HS BUZZ Administration - CT Data CT Scan: Abdomen, P
[2019-04-03 20:35] VITALS: BP 139/86; PULSE 70; RESP 18; O2SAT 97
[2019-04-03 22:14] VITALS: BP 124/78; PULSE 70; RESP 17; TEMP 36.8; O2SAT 98
== END 2019-04-03 22:18 | disposition home or self-care (01) ==
PROVIDERS: Emergency Provider Emergency Medicine; PCP Emergency Medicine
DX: N13.2 Hydronephrosis with renal and ureteral calculous obstruction (principal); F17.210 Nicotine dependence, cigarettes, uncomplicated; E78.5 Hyperlipidemia, unspecified; F41.8 Other specified anxiety disorders
CPT/HCPCS: 74176; 80053; 81001; 82150; 83690; 85007; 85025; 96365; 96375; 99283; J2405

== ENCOUNTER → 2019-04-09 17:09 | Outpatient (CLI) | payer MEDICARE, OTHER, SELFPAY | PROVIDERS: Visit Provider Emergency Medicine | DX: R31.9 Hematuria, unspecified (principal); R35.0 Frequency of micturition | CPT/HCPCS: 87086 ==

== ENCOUNTER → 2019-04-12 15:04 | Outpatient (POV) | payer MEDICARE, OTHER, SELFPAY ==
[2019-04-12 15:24] VITALS: BP 144/98; PULSE 90; RESP 18; O2SAT 98; BMI 29.8
--- NOTE | 2019-04-13 09:11 | HMH.PAINSOAP ---
[facility] Pain Management SOAP Note Subjective:: Patient is a pleasant 59-year-old white female who presents today for follow-up. At her last visit she was sent to a nerve conduction study she did not go to this due to a recent case of kidney stones. Patient states that since her kidneys stones appeared she is been having more pain there and less pain in her neck and shoulders. Patient rates her pain a 2 out of 10. She states that she sat in a shiatsu massage chair and it helped a bit. Patient is interested in trigger point injections in her neck and shoulders however I discussed with her she would have to wait until the kidney stones have resolved. ROS General: no recent weight change, no fever, no sleep disturbances Respiratory: no cough, no shortness of air, no recurring pulmonary infections Cardiovascular/Peripheral Vascular: No chest pain, No palpitations, no edema, no shortness of breath. Gastrointestinal: no incontinence, normal bowel movements reported Genitourinary: no incontinence Musculoskeletal: Neck pain, shoulder pain Psychiatric: normal mood/ affect Neurological: [denies weakness in extremities], [denies balance issues] Objective:: Physical Exam General: Alert and oriented x3, no acute distress, pleasant and cooperative, [on room air] Lungs: Resps E/U, Symmetrical chest expansion, Eyes: PERRL Musculoskeletal: Flexion and extension of cervical spine somewhat guarded secondary to pain, deep tendon reflexes normal, strength in upper and lower extremities [5/5], slightly antalgic gait noted Neurological: speech clear, field artillery cannoneer equal, no gross sensory deficits Assessment:: Left shoulder pain, myofascial pain Plan:: We will plan on trigger point injections in the left trapezius and cervical paraspinous after her kidney stones have resolved. I will follow-up with the patient after her injection reassess her symptoms. She is been instructed to call the office if she has any issues prior to her next appointment. Dr. Yadav has reviewed this note and agrees with this plan of care. This note was dictated using voice recognition software and may contain errors or omissions
== END ==
PROVIDERS: PCP Emergency Medicine; Visit Provider Clinical Nurse Specialist Family Health
DX: M25.512 Pain in left shoulder (principal); M79.18 Myalgia, other site
CPT/HCPCS: 99212

== ENCOUNTER → 2019-05-21 17:50 | Outpatient (CLI) | payer MEDICARE, OTHER, SELFPAY ==
[2019-05-21 18:37] LABS: Amphetamine/Metha Screen,Urine Negative ng/mL (<1000); Barbiturates Screen,Urine Negative ng/mL (<200); Benzodiazepines Screen,Urine Negative ng/mL (<200); Cannabinoid Screen,Urine Negative ng/mL (<50); Cocaine Screen,Urine Negative ng/mL (<300); Methadone Screen,Urine Negative ng/mL (<300); Opiate Screen,Urine Negative ng/mL (<300); Phencyclidine Screen,Urine Negative ng/mL (<25)
[2019-05-27 23:07] LABS: Alprazolam Negative (Cutoff=100); Benzodiazepines Negative ng/mL (Cutoff=100); Clonazepam Negative (Cutoff=100); Flurazepam Negative (Cutoff=100); Lorazepam Negative (Cutoff=100); Midazolam Negative (Cutoff=100); Temazepam Negative (Cutoff=100); Triazolam Negative (Cutoff=100)
== END ==
PROVIDERS: Visit Provider Emergency Medicine
DX: Z79.899 Other long term (current) drug therapy (principal)
CPT/HCPCS: 80305; 80346

== ENCOUNTER → 2019-07-12 14:31 | Outpatient (POV) | payer MEDICARE, OTHER, SELFPAY ==
[2019-07-12 15:01] VITALS: BP 149/88; PULSE 68; RESP 18; O2SAT 98; BMI 30.7
--- NOTE | 2019-07-13 08:44 | P.CONS_ITS ---
[facility] Pain Management SOAP Note Subjective:: Patient is a pleasant 59-year-old white female who presents today for follow-up after trigger point injections. She rates the pain a 4 out of 10 today. Her majority of pain is in the left shoulder she is extremely tender over the subacromial bursa. Patient has limited range of motion on that side. She has had shoulder injections in the past and would like another one due to its efficacy. ROS General: no recent weight change, no fever, no sleep disturbances Respiratory: no cough, no shortness of air, no recurring pulmonary infections Cardiovascular/Peripheral Vascular: No chest pain, No palpitations, no edema, no shortness of breath. Gastrointestinal: no incontinence, normal bowel movements reported Genitourinary: no incontinence Musculoskeletal: Left shoulder pain Psychiatric: normal mood/ affect Neurological: [denies weakness in extremities], [denies balance issues] Objective:: Physical Exam General: Alert and oriented x3, no acute distress, pleasant and cooperative, [on room air] Lungs: Resps E/U, Symmetrical chest expansion, Eyes: PERRL Musculoskeletal: Range of motion left shoulder somewhat guarded secondary to pain, deep tendon reflexes normal, strength in upper and lower extremities [5/5], normal gait noted Neurological: speech clear, hse coordinator equal, no gross sensory deficits Assessment:: Subacromial bursitis, arthritis left shoulder myofascial pain syndrome Plan:: We will set the patient up for a left intra-articular shoulder injection. Patient's been instructed to call the office if she has any issues prior to her next appointment. Dr. Yadav has reviewed this note and agrees with this plan of care. This note was dictated using voice recognition software and may contain errors or omissions Pain Management Hx Components *Have you ever received a pneumonia vaccine?: Yes *Have you received a flu vaccine this season?: Yes - *Social History *Occupational Status:: other *Travel in the last 8 weeks: None
== END ==
PROVIDERS: PCP Emergency Medicine; Visit Provider Clinical Nurse Specialist Family Health
DX: M19.012 Primary osteoarthritis, left shoulder (principal); M75.52 Bursitis of left shoulder; M79.18 Myalgia, other site
CPT/HCPCS: 99212

== ENCOUNTER → 2019-07-16 17:05 | Outpatient (CLI) | payer MEDICARE, OTHER, SELFPAY ==
[2019-07-16 18:46] LABS: Amphetamine/Metha Screen,Urine Negative ng/mL (<1000); Barbiturates Screen,Urine Negative ng/mL (<200); Benzodiazepines Screen,Urine Positive ng/mL (<200); Cannabinoid Screen,Urine Negative ng/mL (<50); Cocaine Screen,Urine Negative ng/mL (<300); Methadone Screen,Urine Negative ng/mL (<300); Opiate Screen,Urine Positive ng/mL (<300); Phencyclidine Screen,Urine Negative ng/mL (<25)
== END ==
PROVIDERS: Visit Provider Emergency Medicine
DX: Z79.891 Long term (current) use of opiate analgesic (principal)
CPT/HCPCS: 80305

== ENCOUNTER → 2019-09-13 17:03 | Outpatient (CLI) | payer MEDICARE, OTHER, SELFPAY ==
[2019-09-13 18:58] LABS: Amphetamine/Metha Screen,Urine Positive ng/mL (<1000); Barbiturates Screen,Urine Negative ng/mL (<200); Benzodiazepines Screen,Urine Negative ng/mL (<200); Cannabinoid Screen,Urine Negative ng/mL (<50); Cocaine Screen,Urine Negative ng/mL (<300); Methadone Screen,Urine Negative ng/mL (<300); Opiate Screen,Urine Positive ng/mL (<300); Phencyclidine Screen,Urine Negative ng/mL (<25)
[2019-09-21 22:10] LABS: Amphetamines Negative (Cutoff=500)
== END ==
PROVIDERS: Visit Provider Emergency Medicine
DX: Z79.899 Other long term (current) drug therapy (principal)
CPT/HCPCS: 80305; 80324

== ENCOUNTER → 2019-09-14 10:03 | Outpatient (POV) | payer MEDICARE, OTHER, SELFPAY ==
[2019-09-14 10:09] VITALS: BP 148/80; PULSE 81; RESP 18; O2SAT 98; BMI 30.1
--- NOTE | 2019-09-14 10:21 | P.CONS_ITS ---
[facility] Pain Management SOAP Note Subjective:: Patient is a pleasant 59-year-old white female who presents today for follow-up after left shoulder injection. Patient is doing extremely well. She does rate her pain a 4 out of 10 today however this due to her left knee pain. Patient has failed intra-articular injections and we have discussed a genicular block and she is interested in pursuing this. I do believe it would be beneficial for her given her pain symptomology. Patient is continuing a home stretching program and is on anti-inflammatories. ROS General: no recent weight change, no fever, no sleep disturbances Respiratory: no cough, no shortness of air, no recurring pulmonary infections Cardiovascular/Peripheral Vascular: No chest pain, No palpitations, no edema, no shortness of breath. Gastrointestinal: no new onset incontinence, normal bowel movements reported Genitourinary: no new onset incontinence Musculoskeletal: Knee pain Psychiatric: normal mood/ affect Neurological: [denies new onset weakness in extremities], [denies new onset balance issues] Objective:: Physical Exam General: Alert and oriented x3, no acute distress, pleasant and cooperative, [on room air] Lungs: Resps E/U, Symmetrical chest expansion, Eyes: PERRL Musculoskeletal: Range of motion left knee somewhat guarded secondary to pain, deep tendon reflexes normal, strength in upper and lower extremities [5/5], [abnormal gait noted] Neurological: speech clear, supplier quality specialist equal, no gross sensory deficits Assessment:: Left knee pain, osteoarthritis left knee Plan:: We will set the patient up for left genicular block I believe to be beneficial given her symptomology. I will follow-up with the patient after this reassess her symptoms at that time she is been instructed to call the office if she has any issues prior to her next appointment. Dr. Yadav has reviewed this note and agrees with this plan of care. This note was dictated using voice recognition software and may contain errors or omissions [facility] History I have reviewed the patient's past medical history: Yes Medical History: Reports:: Anxiety, Depression, Hyperlipidemia, Kidney Stones, MRSA Denies:: Cancer, Diabetes Mellitus Type 1, Diabetes Mellitus Type 2, Internal Pacemaker, Lung Disease, Seizures *Have you ever received a pneumonia vaccine?: Yes *Have you received a flu vaccine this season?: Yes Other Medical History: Reports: Arthritis, Fibromyalgia. Denies: Blood Transfusion Reaction Laterality Cases: Bilateral: Tonsillectomy Other Surgeries: Yes: Colonoscopy, EGD, Tubal Ligation, Other (Disc infusion neck.). No: Pacemaker Amputation: No Fractures: No - *Social History Smoking Status: Current every day smoker Tobacco Type: cigarettes # Packs/Day (cigarettes): 1 Alcohol Intake: current Alcohol Intake Frequency:: holidays/special occasions only Substance Use Type: denies use *Occupational Status:: other Housing: house Household Members: spouse *Travel in the last 8 weeks: None - Psychiatric History Pschychiatric History:: Reports:: Anxiety, Depression Family Hx:: Cancer
== END ==
PROVIDERS: PCP Emergency Medicine; Visit Provider Clinical Nurse Specialist Family Health
DX: M17.12 Unilateral primary osteoarthritis, left knee
CPT/HCPCS: 99212

== ENCOUNTER → 2019-11-10 17:27 | Outpatient (CLI) | payer MEDICARE, MEDICAID, SELFPAY ==
[2019-11-10 20:03] LABS: Amphetamine/Metha Screen,Urine Negative ng/mL (<1000); Barbiturates Screen,Urine Negative ng/mL (<200); Benzodiazepines Screen,Urine Positive ng/mL (<200); Cannabinoid Screen,Urine Negative ng/mL (<50); Cocaine Screen,Urine Negative ng/mL (<300); Methadone Screen,Urine Negative ng/mL (<300); Opiate Screen,Urine Positive ng/mL (<300); Phencyclidine Screen,Urine Negative ng/mL (<25)
== END ==
PROVIDERS: Visit Provider Emergency Medicine
DX: Z79.899 Other long term (current) drug therapy (principal)
CPT/HCPCS: 80305

== ENCOUNTER → 2019-12-28 17:13 | Outpatient (CLI) | payer MEDICARE, MEDICAID, SELFPAY ==
[2019-12-28 21:13] LABS: Amphetamine/Metha Screen,Urine Negative ng/ml (<1000)
[2019-12-28 21:14] LABS: Barbiturates Screen,Urine Negative ng/ml (<200)
[2019-12-28 21:16] LABS: Cannabinoid Screen,Urine Negative ng/ml (<50)
[2019-12-28 21:17] LABS: Cocaine Screen,Urine Negative ng/ml (<300)
[2019-12-28 21:18] LABS: Methadone Screen,Urine Negative ng/ml (<300); Opiate Screen,Urine Positive ng/ml (<300)
[2019-12-28 21:19] LABS: Phencyclidine Screen,Urine Negative ng/ml (<25)
[2020-01-02 07:36] LABS: Alprazolam Positive (.); Benzodiazepines Positive ng/mL (Cutoff=100); Clonazepam Negative (Cutoff=100); Flurazepam Negative (Cutoff=100); Lorazepam Negative (Cutoff=100); Midazolam Negative (Cutoff=100); Temazepam Negative (Cutoff=100); Triazolam Negative (Cutoff=100)
== END ==
PROVIDERS: Visit Provider Emergency Medicine
DX: Z79.899 Other long term (current) drug therapy (principal)
CPT/HCPCS: 80305; 80346

== ENCOUNTER → 2020-04-17 13:02 | Outpatient (POV) | payer MEDICARE, MEDICAID, SELFPAY ==
[2020-04-17 13:40] VITALS: BP 140/82; PULSE 75; RESP 18; O2SAT 99; BMI 31.1
--- NOTE | 2020-04-17 13:43 | HMH.PAINSOAP ---
[facility] Pain Management SOAP Note Subjective:: Patient is a pleasant 60-year-old white female who presents today for follow-up after left genicular block. Patient states that it was helpful but she knows something is wrong . Patient was seen by Ortho in our hospital and she was unimpressed. She would like to be referred somewhere else. We will who we will send her to Dr. Noman hale in [place] for consultation. She is also interested in repeating her left intra-articular shoulder injection. She has had good relief with that in the past. She gets up to 80% relief of her symptomology. She does rate her pain a 2 out of 10 however she states is because of the pain pills that she is currently taking. ROS General: no recent weight change, no fever, no sleep disturbances Respiratory: no cough, no shortness of air, no recurring pulmonary infections Cardiovascular/Peripheral Vascular: No chest pain, No palpitations, no edema, no shortness of breath. Gastrointestinal: no new onset incontinence, normal bowel movements reported Genitourinary: no new onset incontinence Musculoskeletal: Shoulder pain, left knee pain Psychiatric: normal mood/ affect Neurological: [denies new onset weakness in extremities], [denies new onset balance issues] Objective:: Physical Exam General: Alert and oriented x3, no acute distress, pleasant and cooperative, [on room air] Lungs: Resps E/U, Symmetrical chest expansion, Eyes: PERRL Musculoskeletal: Flexion and extension of cervical and lumbar spine somewhat guarded secondary to pain, deep tendon reflexes normal, strength in upper and lower extremities [5/5], [abnormal gait noted] extreme tenderness over left shoulder, decreased range of motion left shoulder Neurological: speech clear, polysomnographic technician equal, no gross sensory deficits Assessment:: Left knee pain, left shoulder pain Plan:: We will send the patient to Dr. Vieira in [place] for consultation in regards to her left knee pain. We will also order a left intra-articular shoulder injection for the patient. I will follow-up with her after this and reassess her symptoms at that time. She is been instructed to call the office if she has any issues prior to her next appointment. Dr. Yadav has reviewed this note and agrees with this plan of care. This note was dictated using voice recognition software and may contain errors or omissions [facility] History I have reviewed the patient's past medical history: Yes Medical History: Reports:: Anxiety, Depression, Hyperlipidemia, Kidney Stones, MRSA Denies:: Cancer, Diabetes Mellitus Type 1, Diabetes Mellitus Type 2, Internal Pacemaker, Lung Disease, Seizures *Have you ever received a pneumonia vaccine?: Yes *Have you received a flu vaccine this season?: Yes Other Medical History: Reports: Arthritis, Fibromyalgia. Denies: Blood Transfusion Reaction Laterality Cases: Bilateral: Tonsillectomy Other Surgeries: Yes: Colonoscopy, EGD, Tubal Ligation, Other (Disc infusion neck.). No: Pacemaker Amputation: No Fractures: No - *Social History Smoking Status: Current every day smoker Tobacco Type: cigarettes # Packs/Day (cigarettes): 1 Alcohol Intake: never Alcohol Intake Frequency:: holidays/special occasions only Substance Use Type: denies use *Occupational Status:: other Housing: house Household Members: spouse *Travel in the last 8 weeks: None - Psychiatric History Pschychiatric History:: Reports:: Anxiety, Depression Family Hx:: Cancer
== END ==
PROVIDERS: PCP Emergency Medicine; Visit Provider Clinical Nurse Specialist Family Health
DX: M25.562 Pain in left knee (principal); M25.512 Pain in left shoulder
CPT/HCPCS: 99212

== ENCOUNTER 2020-05-19 13:29 | Day surgery (SDC) | payer MEDICARE, MEDICAID, SELFPAY ==
[2020-05-19 13:54] VITALS: BP 153/77; PULSE 82; RESP 18; TEMP 36.7; O2SAT 95; BMI 32.9
--- NOTE | 2020-05-19 14:27 | HMH.PMPROC ---
- Procedure Date: 05/19/20 Time: 14:27 Anesthesiologist:: Favio Yadav MD Complications:: None Pre-procedure Diagnosis:: Left shoulder pain with degenerative osteoarthritis left shoulder Post-procedure Diagnosis:: Same Indications for Procedure:: This patient is a pleasant 60-year-old white female who we are treating for left shoulder pain with degenerative osteoarthritis of the left shoulder. She is being evaluated for her knee pain. She does have increasing left shoulder pain with degenerative osteoarthritis. We will do a left shoulder intra-articular injection and suprascapular nerve block today. Procedure Details:: Left shoulder intra-articular injection and suprascapular nerve block Informed consent was obtained risk and benefits of the procedure were explained to the patient. Patient was taken to the procedure room. Left shoulder was prepped using ChloraPrep. 25-gauge needle was used to inject 10 mL bupivacaine 0.25% Depo-Medrol 40 mg into the left shoulder joint and in the area of the left suprascapular nerve. Patient tolerated the procedure well with no complications. Plan and Disposition:: We will follow-up with her in 2 weeks. Will reevaluate symptoms at that time.
[2020-05-19 14:38] VITALS: BP 148/80; PULSE 85; RESP 18; O2SAT 95
[2020-05-19 14:40] VITALS: BP 125/88; PULSE 89; RESP 18; O2SAT 98
[2020-05-19 14:41] VITALS: BP 124/88; PULSE 85; RESP 18; O2SAT 98
== END 2020-05-19 14:39 | disposition home or self-care (01) ==
LOC: SC.PAINP 13:32
PROVIDERS: PCP Emergency Medicine; Visit Provider Anesthesiology
DX: M19.012 Primary osteoarthritis, left shoulder (principal); I10 Essential (primary) hypertension; E78.5 Hyperlipidemia, unspecified; F41.9 Anxiety disorder, unspecified; F32.9 Major depressive disorder, single episode, unspecified; Z90.89 Acquired absence of other organs; E66.9 Obesity, unspecified; Z68.32 Body mass index [BMI] 32.0-32.9, adult; Z87.442 Personal history of urinary calculi; Z86.19 Personal history of other infectious and parasitic diseases; Z72.0 Tobacco use; Z79.899 Other long term (current) drug therapy
CPT/HCPCS: 20610; 77002; J1040

== ENCOUNTER → 2020-06-08 14:18 | Outpatient (CLI) | payer MEDICARE, MEDICAID, SELFPAY ==
--- NOTE | 2020-06-08 14:24 | MR_ITS ---
PROCEDURE: MR KNEE LT WO CON CLINICAL INDICATION: PAIN IN LEFT KNEE ENTIRE KNEE PAIN WITH PAIN GOING DOWN LEG. KNEE INSTABILITY. X3YRS. PAIN WHEN BENDING. PRIOR X-RAY 03/13/2018 COMPARISON: CR [id number] from 09/30/2017 TECHNIQUE: Routine multiplanar multi echo sequences are performed without gadolinium enhancement. FINDINGS: The cruciate ligaments, collateral ligaments, patellar tendon, and quadriceps tendon appear intact. No meniscal tear apparent. There is some nonspecific increased T2 signal of the posterior horn of the medial meniscus but does not meet strict MRI criteria for meniscal tear. No significant effusion. No patellar subluxation. There is some minimal thinning of the patellar cartilage medially with some slight increase in sub articular T2 signal of the posterior aspect of the patella. IMPRESSION: 1. No evidence of internal derangement 2. Minimal thinning of the patellar cartilage with slight increase in sub chondral signal which may be due to mild chondromalacia patella Dictated b Wolfgang Herndon MD 06/10/2020 13:44 Wolfgang Herndon MD in [place] 06/10/2020 13:44
== END ==
PROVIDERS: PCP Emergency Medicine; Visit Provider Orthopaedic Surgery Adult Reconstructive Orthopaedic Surgery
DX: M25.562 Pain in left knee (principal)
CPT/HCPCS: 73721

== ENCOUNTER → 2020-06-19 13:12 | Outpatient (POV) | payer MEDICARE, MEDICAID, SELFPAY ==
[2020-06-19 13:31] VITALS: BP 125/78; PULSE 79; RESP 18; TEMP 36.9; O2SAT 99; BMI 29.5
--- NOTE | 2020-06-19 15:31 | P.CONS_ITS ---
[facility] Pain Management SOAP Note Subjective:: Patient is a pleasant 60-year-old white female who presents today for follow-up after left shoulder injection. She is having no shoulder pain today rating her pain a 0 out of 10 however she is having myofascial pain in her cervical spine paraspinous and left trapezius muscles. Patient has palpable trigger points in these parts. Patient I discussed trigger point injections. She is also awaiting an appointment with Dr. Noman hale for her knees. ROS General: no recent weight change, no fever, no sleep disturbances Respiratory: no cough, no shortness of air, no recurring pulmonary infections Cardiovascular/Peripheral Vascular: No chest pain, No palpitations, no edema, no shortness of breath. Gastrointestinal: no new onset incontinence, normal bowel movements reported Genitourinary: no new onset incontinence Musculoskeletal: Myofascial pain, knee pain Psychiatric: normal mood/ affect Neurological: [denies new onset weakness in extremities], [denies new onset balance issues] Objective:: Physical Exam General: Alert and oriented x3, no acute distress, pleasant and cooperative, [on room air] Lungs: Resps E/U, Symmetrical chest expansion, Eyes: PERRL Musculoskeletal: Flexion and extension of cervical spine somewhat guarded secondary to pain, deep tendon reflexes normal, strength in upper and lower extremities [5/5], antalgic gait noted, palpable trigger points in the cervical left paraspinous muscles and trapezius muscles Neurological: speech clear, child support officer equal, no gross sensory deficits Assessment:: Left shoulder pain, knee pain, myofascial pain syndrome Plan:: We will set her up for trigger points of the cervical paraspinous and trapezius muscle on the left side. I will follow-up with her after this reassess her symptoms at that time she has been instructed to call the office if she has any issues prior to her next appointment. Dr. Yadav has reviewed this note and agrees with this plan of care. This note was dictated using voice recognition software and may contain errors or omissions [facility] History I have reviewed the patient's past medical history: Yes Medical History: Reports:: Anxiety, Depression, Hyperlipidemia, Kidney Stones Denies:: Cancer, Diabetes Mellitus Type 1, Diabetes Mellitus Type 2, Internal Pacemaker, Lung Disease, MRSA, Seizures *Have you ever received a pneumonia vaccine?: Yes *Have you received a flu vaccine this season?: Yes Other Medical History: Reports: Arthritis, Fibromyalgia. Denies: Blood Transfus ion Reaction Laterality Cases: Bilateral: Tonsillectomy Other Surgeries: Yes: Colonoscopy, EGD, Tubal Ligation, Other (Disc infusion neck.). No: Pacemaker Amputation: No Fractures: No - *Social History Smoking Status: Current every day smoker Tobacco Type: cigarettes # Packs/Day (cigarettes): 1 Alcohol Intake: never Alcohol Intake Frequency:: holidays/special occasions only Substance Use Type: denies use *Occupational Status:: other Housing: house Household Members: spouse *Travel in the last 8 weeks: None - Psychiatric History Pschychiatric History:: Reports:: Anxiety, Depression Family Hx:: Cancer
== END ==
PROVIDERS: PCP Emergency Medicine; Visit Provider Clinical Nurse Specialist Family Health
DX: M25.512 Pain in left shoulder (principal); M25.569 Pain in unspecified knee; M79.18 Myalgia, other site
CPT/HCPCS: 99212

== ENCOUNTER → 2020-11-24 14:35 | Outpatient (CLI) | payer MEDICARE, MEDICAID, SELFPAY ==
[2020-11-27 20:47] LABS: Amphetamine/Metha Screen,Urine Negative ng/ml (<1000)
[2020-11-27 20:48] LABS: Barbiturates Screen,Urine Negative ng/ml (<200)
[2020-11-27 20:49] LABS: Benzodiazepines Screen,Urine Positive ng/ml (<200); Cannabinoid Screen,Urine Negative ng/ml (<50)
[2020-11-27 20:51] LABS: Cocaine Screen,Urine Negative ng/ml (<300); Methadone Screen,Urine Negative ng/ml (<300)
[2020-11-27 20:52] LABS: Opiate Screen,Urine Positive ng/ml (<300)
[2020-11-27 20:53] LABS: Phencyclidine Screen,Urine Negative ng/ml (<25)
== END ==
PROVIDERS: Visit Provider Emergency Medicine
DX: Z79.899 Other long term (current) drug therapy (principal)
CPT/HCPCS: 80305

== ENCOUNTER → 2021-01-24 16:37 | Outpatient (CLI) | payer MEDICARE, MEDICAID, SELFPAY ==
[2021-01-24 17:25] LABS: Basophils # 0.1 K/mm3 (0-0.2); Basophils % 0.7 % (0.1-2.0); Eosinophils # 0.2 K/mm3 (0.0-0.4); Eosinophils % 1.3 % (0.1-12.0); Hematocrit 49.3 % (37.0-47.0); Hemoglobin 16.8 g/dL (12.2-16.2); Lymphocytes # 3.5 K/mm3 (0.7-4.5); Lymphocytes % 31.2 % (10-50); Mean Corpuscular HGB Conc 34.1 g/dL (31.8-35.4); Mean Corpuscular Hemoglobin 30.4 pg (27.0-31.2); Mean Corpuscular Volume 89.4 fl (81-99); Mean Platelet Volume 7.9 fl (7.4-10.4); Monocytes # 0.7 K/mm3 (0.1-1.0); Monocytes % 6.3 % (1.7-9.3); Neutrophils # 6.8 K/mm3 (1.8-7.8); Neutrophils % 60.5 % (37.0-80.0); Platelet Count 354 K/mm3 (142-424); Red Blood Count 5.52 M/mm3 (4.20-5.40); Red Cell Distribution Width 14.4 % (11.5-17.5); White Blood Count 11.2 K/mm3 (4.8-10.8)
[2021-01-24 17:45] LABS: Alanine Aminotransferase 34 U/L (12-78); Albumin Level 4.8 g/dl (3.5-5.0); Albumin/Globulin Ratio 1.6 (1.1-1.8); Alkaline Phosphatase 70 U/L (38-126); Anion Gap 16.1 mEq/L (5-15); Aspartate Amino Transferase 31 U/L (14-36); Bilirubin,Total 0.3 mg/dl (0.2-1.3); Blood Urea Nitrogen 9 mg/dl (7-17); Calcium 10.1 mg/dl (8.4-10.2); Carbon Dioxide 22 mmol/L (22.0-30.0); Chloride 108 mmol/L (98-107); Chol/HDL Ratio 6.4 (1-3.5); Cholesterol 206 mg/dl (140-200); Estimated Glomerular Filt Rate 57 ml/min (>60); GFR (African American) 68 ML/MIN (>60); Glucose 135 mg/dl (74-100); HDL Cholesterol 32 mg/dl (40-60); Potassium 4.1 mmoL/L (3.5-5.1); Sodium 142 mmol/L (136-145); Total Protein,Serum 7.8 g/dl (6.3-8.2); Triglycerides 356 mg/dl (30-150); VLDL Cholesterol 71 mg/dL (0-40)
[2021-01-24 17:57] LABS: Direct LDL Cholesterol 103.38 mg/dL (100-129)
[2021-01-24 18:03] LABS: 25-OH Vitamin D, Total 30.6 ng/mL (30-100); Free T4 (Free Thyroxine) 0.94 ng/dl (0.78-2.19)
[2021-01-24 18:16] LABS: Thyroid Stimulating Hormone 0.49 uIU/mL (0.465-4.68)
[2021-01-24 18:34] LABS: Vitamin B12 774 pg/mL (239-931)
[2021-01-24 19:29] LABS: Amphetamine/Metha Screen,Urine Negative ng/ml (<1000); Barbiturates Screen,Urine Negative ng/ml (<200)
[2021-01-24 19:31] LABS: Cannabinoid Screen,Urine Negative ng/ml (<50); Cocaine Screen,Urine Negative ng/ml (<300)
[2021-01-24 19:32] LABS: Methadone Screen,Urine Negative ng/ml (<300); Opiate Screen,Urine Positive ng/ml (<300)
[2021-01-24 19:33] LABS: Phencyclidine Screen,Urine Negative ng/ml (<25)
[2021-01-28 23:58] LABS: Alprazolam Positive (.); Benzodiazepines Positive ng/mL (Cutoff=100); Clonazepam Negative (Cutoff=100); Flurazepam Negative (Cutoff=100); Lorazepam Negative (Cutoff=100); Midazolam Negative (Cutoff=100); Temazepam Negative (Cutoff=100); Triazolam Negative (Cutoff=100)
== END ==
PROVIDERS: Visit Provider Emergency Medicine
DX: E66.9 Obesity, unspecified (principal); E55.9 Vitamin D deficiency, unspecified; Z79.899 Other long term (current) drug therapy; R53.83 Other fatigue; Z68.34 Body mass index [BMI] 34.0-34.9, adult
CPT/HCPCS: 80053; 80061; 80305; 80346; 82306; 82607; 83036; 84439; 84443; 85025

== ENCOUNTER → 2021-01-25 14:40 | Outpatient (POV) | payer MEDICARE, MEDICAID, SELFPAY ==
--- NOTE | 2021-01-25 15:09 | P.CONS_ITS ---
[facility] Pain Management SOAP Note Subjective:: Pleasant 60-year-old white female who presents today for follow-up. Patient has been doing well until recently. She is having quite a bit of myofascial pain mostly in her bilateral shoulders trapezius muscles and neck. Patient rates her pain a 4 out of 10. She has palpable trigger points of these places. Patient I discussed trigger point injection she would like to move forward with this. ROS General: no recent weight change, no fever, no sleep disturbances Respiratory: no cough, no shortness of air, no recurring pulmonary infections Cardiovascular/Peripheral Vascular: No chest pain, No palpitations, no edema, no shortness of breath. Gastrointestinal: no new onset incontinence, normal bowel movements reported Genitourinary: no new onset incontinence Musculoskeletal: Myofascial pain syndrome Psychiatric: normal mood/ affect Neurological: [denies new onset weakness in extremities], [denies new onset balance issues] Objective:: physical Exam General: Alert and oriented x3, no acute distress, pleasant and cooperative, [on room air] Lungs: Resps E/U, Symmetrical chest expansion, Eyes: PERRL Musculoskeletal: Flexion and extension of cervical spine somewhat guarded secondary to pain, deep tendon reflexes normal, strength in upper and lower extremities [5/5], slightly antalgic gait noted Neurological: speech clear, clinical trial specialist equal, no gross sensory deficits Assessment:: Left shoulder pain, right shoulder pain, myofascial pain syndrome Plan:: We will schedule the patient for cervical paraspinous and trapezius muscle trigger point injections. I will follow-up with her after this reassess her symptoms at that time she has been instructed to call the office if she has any issues prior to her next appointment. Dr. Yadav has reviewed this note and agrees with this plan of care. This note was dictated using voice recognition software and may contain errors or omissions [facility] History I have reviewed the patient's past medical history: Yes Medical History: Reports:: Anxiety, Depression, Hyperlipidemia, Kidney Stones, MRSA Denies:: Cancer, Diabetes Mellitus Type 1, Diabetes Mellitus Type 2, Internal Pacemaker, Lung Disease, Seizures *Have you ever received a pneumonia vaccine?: Yes *Have you received a flu vaccine this season?: Yes Other Medical History: Reports: Arthritis, Fibromyalgia. Denies: Blood Transfusion Reaction Laterality Cases: Bilateral: Tonsillectomy Other Surgeries: Yes: Colonoscopy, EGD, Tubal Ligation, Other (Disc infusion neck.). No: Pacemaker Amputation: No Fractures: No - *Social History Smoking Status: Current every day smoker Tobacco Type: cigarettes # Packs/Day (cigarettes): 1 Alcohol Intake: current Alcohol Intake Frequency:: holidays/special occasions only Substance Use Type: denies use *Occupational Status:: other Housing: house Household Members: spouse *Travel in the last 8 weeks: None - Psychiatric History Pschychiatric History:: Reports:: Anxiety, Depression Family Hx:: Cancer
[2021-01-25 15:15] VITALS: BP 142/71; PULSE 75; RESP 18; O2SAT 98; BMI 31.5
== END ==
PROVIDERS: PCP Emergency Medicine; Visit Provider Clinical Nurse Specialist Family Health
DX: M25.511 Pain in right shoulder (principal); M25.512 Pain in left shoulder; M79.18 Myalgia, other site
CPT/HCPCS: 99212; G0463

== ENCOUNTER → 2021-03-27 18:09 | Outpatient (CLI) | payer MEDICARE, MEDICAID, SELFPAY ==
[2021-03-27 19:08] LABS: Amphetamine/Metha Screen,Urine Negative ng/ml (<1000)
[2021-03-27 19:09] LABS: Barbiturates Screen,Urine Negative ng/ml (<200)
[2021-03-27 19:10] LABS: Benzodiazepines Screen,Urine Positive ng/ml (<200); Cannabinoid Screen,Urine Negative ng/ml (<50)
[2021-03-27 19:11] LABS: Cocaine Screen,Urine Negative ng/ml (<300)
[2021-03-27 19:12] LABS: Methadone Screen,Urine Negative ng/ml (<300)
[2021-03-27 19:14] LABS: Opiate Screen,Urine Positive ng/ml (<300); Phencyclidine Screen,Urine Negative ng/ml (<25)
== END ==
PROVIDERS: Visit Provider Emergency Medicine
DX: Z79.899 Other long term (current) drug therapy (principal)
CPT/HCPCS: 80305

== ENCOUNTER → 2021-05-22 08:00 | Outpatient (CLI) | payer MEDICARE, MEDICAID, SELFPAY ==
[2021-05-23 10:57] LABS: Amphetamine/Metha Screen,Urine Negative ng/ml (<1000)
[2021-05-23 10:58] LABS: Barbiturates Screen,Urine Negative ng/ml (<200); Benzodiazepines Screen,Urine Positive ng/ml (<200)
[2021-05-23 10:59] LABS: Cannabinoid Screen,Urine Negative ng/ml (<50); Cocaine Screen,Urine Negative ng/ml (<300)
[2021-05-23 11:00] LABS: Methadone Screen,Urine Negative ng/ml (<300)
[2021-05-23 11:01] LABS: Opiate Screen,Urine Positive ng/ml (<300); Phencyclidine Screen,Urine Negative ng/ml (<25)
== END ==
PROVIDERS: Visit Provider Emergency Medicine
DX: Z79.899 Other long term (current) drug therapy (principal)
CPT/HCPCS: 80305

== ENCOUNTER → 2021-07-31 17:45 | Outpatient (CLI) | payer MEDICARE, MEDICAID, SELFPAY ==
[2021-07-31 19:02] LABS: Barbiturates Screen,Urine Negative ng/ml (<200)
[2021-07-31 19:03] LABS: Amphetamine/Metha Screen,Urine Negative ng/ml (<1000)
[2021-07-31 19:04] LABS: Cannabinoid Screen,Urine Negative ng/ml (<50)
[2021-07-31 19:05] LABS: Cocaine Screen,Urine Negative ng/ml (<300); Methadone Screen,Urine Negative ng/ml (<300)
[2021-07-31 19:06] LABS: Opiate Screen,Urine Positive ng/ml (<300); Phencyclidine Screen,Urine Negative ng/ml (<25)
[2021-07-31 19:18] LABS: Benzodiazepines Screen,Urine Positive ng/ml (<200)
== END ==
PROVIDERS: Visit Provider Emergency Medicine
DX: Z79.899 Other long term (current) drug therapy (principal)
CPT/HCPCS: 80305

== ENCOUNTER 2021-10-04 15:56 | Emergency (ER) | payer MEDICARE, MEDICAID, SELFPAY ==
[2021-10-04 15:58] VITALS: BP 170/81; PULSE 74; RESP 22; TEMP 36.6; O2SAT 98; BMI 30.7
--- NOTE | 2021-10-04 16:12 | CT_ITS ---
PROCEDURE INFORMATION: Exam: CT Abdomen And Pelvis Without Contrast Exam date and time: 10/04/2021 4:12 PM Age: 61 years old Clinical indication: Abdominal pain; Localized; Left; Additional info: Left flank pain TECHNIQUE: Imaging protocol: Computed tomography of the abdomen and pelvis without contrast. Radiation optimization: All CT scans at this facility use at least one of these dose optimization techniques: automated exposure control; mA and/or kV adjustment per patient size (includes targeted exams where dose is matched to clinical indication); or iterative reconstruction. COMPARISON: [facility] CT abdomen pelvis wo con 04/03/2019 8:11 PM FINDINGS: Liver: There is a diffuse decrease in hepatic parenchymal density consistent with fatty infiltration. Gallbladder and bile ducts: Tiny gallstones. Pancreas: Normal. No ductal dilation. Spleen: Normal. No splenomegaly. Adrenal glands: Normal. No mass. Kidneys and ureters: Multiple less than 5 mm right renal stones. 3 mm obstructing stone in the proximal left ureter with mild left-sided hydroureteronephrosis. Stomach and bowel: Unremarkable. No obstruction. No mucosal thickening. Appendix: No evidence of appendicitis. Intraperitoneal space: Unremarkable. No free air. No significant fluid collection. Vasculature: Mild atherosclerotic changes are seen within the abdominal aorta and branch vasculature without evidence of aneurysm. Lymph nodes: Unremarkable. No enlarged lymph nodes. Urinary bladder: Unremarkable as visualized. Reproductive: Unremarkable as visualized. Bones/joints: Unremarkable. No acute fracture. Soft tissues: Unremarkable. IMPRESSION: 1. 3 mm obstructing stone in the proximal left ureter. 2. Right-sided nephrolithiasis. 3. Tiny gallstones. 4. Fatty liver.
[2021-10-04 16:19] LABS: Microscopic, Urine URINE MICROSCOPIC (MICROSCOPIC)
[2021-10-04 16:20] LABS: Appearance,Urine CLOUDY (Clear); Bilirubin,Urine Negative (Negative); Blood, Urine 3+ (Negative); Color,Urine DK YELLOW (Yellow); Glucose,Urine (UA) Negative (Negative); Ketones,Urine Negative (Negative); Leukocyte Esterase,Urine TRACE (Negative); Nitrate,Urine POSITIVE (Negative); PH,Urine 7.5 (5.0-8.5); Protein,Urine 1+ (Negative); Urobilinogen,Urine 0.2 EU/dl (0.2)
[2021-10-04 16:25] LABS: Basophils # 0.1 K/mm3 (0-0.2); Basophils % 0.9 % (0.1-2.0); Eosinophils # 0.2 K/mm3 (0.0-0.4); Eosinophils % 1.5 % (0.1-12.0); Hemoglobin 16.6 g/dL (12.2-16.2); Lymphocytes # 4.6 K/mm3 (0.7-4.5); Lymphocytes % 35.7 % (10-50); Mean Corpuscular HGB Conc 35.3 g/dL (31.8-35.4); Mean Corpuscular Hemoglobin 31.3 pg (27.0-31.2); Mean Corpuscular Volume 88.7 fl (81-99); Mean Platelet Volume 7.9 fl (7.4-10.4); Monocytes # 0.6 K/mm3 (0.1-1.0); Monocytes % 4.8 % (1.7-9.3); Neutrophils # 7.3 K/mm3 (1.8-7.8); Neutrophils % 57.1 % (37.0-80.0); Platelet Count 368 K/mm3 (142-424); Red Cell Distribution Width 14.8 % (11.5-17.5); White Blood Count 12.9 K/mm3 (4.8-10.8)
[2021-10-04 16:31] LABS: Chloride 106 mmol/L (98-107); Potassium 3.7 mmoL/L (3.5-5.1); Sodium 144 mmol/L (136-145)
[2021-10-04 16:33] LABS: Lipase 114 U/L (23-300)
[2021-10-04 16:34] LABS: Alanine Aminotransferase 27 U/L (12-78); Albumin Level 4.8 g/dl (3.5-5.0); Albumin/Globulin Ratio 1.5 (1.1-1.8); Alkaline Phosphatase 75 U/L (38-126); Anion Gap 16.7 mEq/L (5-15); Aspartate Amino Transferase 34 U/L (14-36); Bilirubin,Total 0.4 mg/dl (0.2-1.3); Blood Urea Nitrogen 12 mg/dl (7-17); Calcium 10.5 mg/dl (8.4-10.2); Carbon Dioxide 25 mmol/L (22.0-30.0); Creatinine Clearance Estimated 93 mL/min (50-200); Estimated Glomerular Filt Rate 56 ml/min (>60); GFR (African American) 68 ML/MIN (>60); Globulin 3.1 g/dL (1.3-3.2); Glucose 124 mg/dl (74-100); Total Protein,Serum 7.9 g/dl (6.3-8.2)
[2021-10-04 16:40] VITALS: BP 156/84; PULSE 75; O2SAT 96
[2021-10-04 16:41] LABS: Bacteria,Urine 2+ /lpf; RBC,Urine TNTC #/hpf (0-3); Squamous Epithelial Cell,Urine Occasional #/hpf (0-5)
--- NOTE | 2021-10-04 16:43 | HMH.EDGENADL ---
ED Disposition Clinical Impression: Kidney stone on left side Disposition: Home, Self-Care Condition on Discharge: Good Instructions: Kidney Stones -- Adult Prescriptions: cephALEXin [Cephalexin 500mg Tab] 500 mg PO BID #14 tab Transmission Status: Pending to [facility] Tamsulosin HCl [Flomax 0.4mg capsule] 0.4 mg PO DAILY #10 cap Transmission Status: Pending to [facility] Ondansetron [Zofran 4mg ODT] 4 mg PO BIDP PRN #10 tab PRN Reason: Nausea Transmission Status: Pending to [facility] Referrals: Christopher Hook MD [Primary Care Provider] - - Critical Care Critical Care Time: No Attestation: On 10/04/21, the high probability of a clinically significant, sudden or life threatening deterioration of the following system(s) required my full and direct attention, intervention and personal management. The time I documented below is in addition to time spent performing reported procedures but includes the following listed in this critical care notation. Medical Decision Making - Medical Records Medical records reviewed: Yes: I reviewed the patient's medical records. - Joon Inquiry Pt receiving controlled substance: Yes Joon was queried for this patient: Yes Reference #:: [id number] Risks and benefits of using a controlled substance: were discussed with pt by me Vital Signs: 10/04/21 15:58 10/04/21 16:40 Temperature 97.8 F Temperature Source Oral Pulse Rate 75 Pulse Rate [Radial] 74 Respiratory Rate 22 Blood Pressure 156/84 H Blood Pressure [Right Arm] 170/81 H Blood Pressure Mean [Right Arm] 110 Blood Pressure Position [Right Arm] Sitting 02 Sat by Pulse Oximetry 98 96 Oxygen Delivery Method Room Air Room Air - Lab Data Lab Results 10/04/21 16:10: Urine Color Dk yellow, Urine Appearance Cloudy, Urine pH 7.5, Ur Specific [place] 1.020, Urine Protein 1+, Urine Glucose (UA) Negative, Urine Ketones Negative, Urine Blood 3+, Urine Nitrate Positive, Urine Bilirubin Negative, Urine Urobilinogen 0.2, Ur Leukocyte Esterase Trace, Urine RBC Tntc, Urine WBC 10-20, Ur Squamous Epith Cells Occasional, Urine Bacteria 2+ 10/04/21 16:10: WBC 12.9 H, RBC 5.30, Hgb 16.6 H, Hct 47.0, MCV 88.7, MCH 31.3 H, MCHC 35.3, RDW 14.8, Plt Count 368, MPV 7.9, Neut % (Auto) 57.1, Lymph % (Auto) 35.7, [place] % (Auto) 4.8, Eos % (Auto) 1.5, Baso % (Auto) 0.9, Neut # (Auto) 7.3, Lymph # (Auto) 4.6 H, [place] # (Auto) 0.6, Eos # (Auto) 0.2, Baso # (Auto) 0.1 10/04/21 16:10: Sodium 144, Potassium 3.7, Chloride 106, Carbon Dioxide 25, Anion Gap 16.7 H, BUN 12, Creatinine 1.00, Estimated Creat Clear 93, Estimated GFR 56 L, Est GFR ( Amer) 68, Glucose 124 H, Calcium 10.5 H, Total Bilirubin 0.4, AST 34, ALT 27, Alkaline Phosphatase 75, Total Protein 7.9, Albumin 4.8, Globulin 3.1, Albumin/Globulin Ratio 1.5 10/04/21 16:10: Lipase 114 Result diagrams: 10/04/21 16:10 10/04/21 16:10 Orders (Tests/Meds): ED MEDICATIONS Generic Name Dose Route Start Last Admin Trade Name Freq PRN Reason Stop Dose Admin Sodium Chloride 1,000 mls @ 999 mls/hr 10/04/21 16:30 10/04/21 16:13 Sod Chlor 0.9% 1000ml Bag IV 10/04/21 17:30 999 mls/hr .[id number] BUZZ Administration Discontinued Medications Generic Name Dose Route Start Last Admin Trade Name Freq PRN Reason Stop Dose Admin Morphine Sulfate 4 mg 10/04/21 16:12 10/04/21 16:13 Morphine 4mg/Ml Syringe IV 10/04/21 16:13 4 mg ONCE ONE Administration Ondansetron HCl 4 mg 10/04/21 16:12 10/04/21 16:13 Ondansetron 4mg/2ml Vial IV 10/04/21 16:13 4 mg ONCE ONE Administration ORDERS Category Date Time Status Urine Culture Stat Micro 10/04/21 16:10 Received - CT Data CT Scan: Abdomen, Pelvis Time Received: 17:[address] Reviewed: Yes: I have reviewed the patient's CT results, I have viewed the radiologist's interpretation Findings Narrative: IMPRESSION: 1. 3 mm obstructing stone
[2021-10-04 18:21] VITALS: BP 118/74; PULSE 74; RESP 16; TEMP 36.6; O2SAT 98
== END 2021-10-04 18:23 | disposition home or self-care (01) ==
PROVIDERS: Emergency Provider Emergency Medicine; PCP Emergency Medicine
DX: N20.0 Calculus of kidney (principal); F41.8 Other specified anxiety disorders; E78.5 Hyperlipidemia, unspecified; M79.7 Fibromyalgia; Z87.442 Personal history of urinary calculi; F17.210 Nicotine dependence, cigarettes, uncomplicated
CPT/HCPCS: 74176; 80053; 81001; 83690; 85025; 87086; 96365; 96367; 96375; 96376; 99283; J2405

== ENCOUNTER → 2021-10-15 18:13 | Outpatient (CLI) | payer MEDICARE, MEDICAID, SELFPAY ==
[2021-10-15 20:05] LABS: Benzodiazepines Screen,Urine Positive ng/ml (<200)
[2021-10-15 20:06] LABS: Amphetamine/Metha Screen,Urine Negative ng/ml (<1000); Barbiturates Screen,Urine Negative ng/ml (<200)
[2021-10-15 20:07] LABS: Cannabinoid Screen,Urine Negative ng/ml (<50)
[2021-10-15 20:08] LABS: Cocaine Screen,Urine Negative ng/ml (<300); Methadone Screen,Urine Negative ng/ml (<300)
[2021-10-15 20:09] LABS: Opiate Screen,Urine Positive ng/ml (<300)
[2021-10-15 20:10] LABS: Phencyclidine Screen,Urine Negative ng/ml (<25)
== END ==
PROVIDERS: Visit Provider Emergency Medicine
DX: Z79.899 Other long term (current) drug therapy (principal)
CPT/HCPCS: 80305

== ENCOUNTER → 2022-02-19 12:11 | Outpatient (CLI) | payer MEDICARE, MEDICAID, SELFPAY ==
[2022-02-19 20:07] LABS: Benzodiazepines Screen,Urine Negative ng/ml (<200)
[2022-02-19 20:08] LABS: Amphetamine/Metha Screen,Urine Negative ng/ml (<1000); Barbiturates Screen,Urine Negative ng/ml (<200)
[2022-02-19 20:09] LABS: Cannabinoid Screen,Urine Negative ng/ml (<50)
[2022-02-19 20:10] LABS: Cocaine Screen,Urine Negative ng/ml (<300); Methadone Screen,Urine Negative ng/ml (<300)
[2022-02-19 20:11] LABS: Opiate Screen,Urine Negative ng/ml (<300); Phencyclidine Screen,Urine Negative ng/ml (<25)
== END ==
PROVIDERS: PCP Emergency Medicine; Visit Provider Emergency Medicine
DX: M79.7 Fibromyalgia (principal)
CPT/HCPCS: 80305

== ENCOUNTER → 2022-04-16 07:05 | Outpatient (CLI) | payer MEDICARE, MEDICAID, SELFPAY ==
[2022-04-15 19:25] LABS: Amphetamine/Metha Screen,Urine Negative ng/ml (<1000)
[2022-04-15 19:26] LABS: Barbiturates Screen,Urine Negative ng/ml (<200)
[2022-04-15 19:27] LABS: Benzodiazepines Screen,Urine Negative ng/ml (<200); Cannabinoid Screen,Urine Negative ng/ml (<50)
[2022-04-15 19:28] LABS: Cocaine Screen,Urine Negative ng/ml (<300)
[2022-04-15 19:29] LABS: Methadone Screen,Urine Negative ng/ml (<300); Opiate Screen,Urine Positive ng/ml (<300)
[2022-04-15 19:30] LABS: Phencyclidine Screen,Urine Negative ng/ml (<25)
== END ==
PROVIDERS: PCP Emergency Medicine; Visit Provider Emergency Medicine
DX: Z79.899 Other long term (current) drug therapy (principal)
CPT/HCPCS: 80305

== ENCOUNTER → 2022-08-07 16:00 | Outpatient (CLI) | payer MEDICARE, MEDICAID, SELFPAY ==
[2022-08-07 19:21] LABS: Amphetamine/Metha Screen,Urine Negative ng/ml (<1000); Barbiturates Screen,Urine Negative ng/ml (<200)
[2022-08-07 19:22] LABS: Benzodiazepines Screen,Urine Negative ng/ml (<200)
[2022-08-07 19:23] LABS: Cannabinoid Screen,Urine Negative ng/ml (<50)
[2022-08-07 19:24] LABS: Cocaine Screen,Urine Negative ng/ml (<300)
[2022-08-07 19:25] LABS: Methadone Screen,Urine Negative ng/ml (<300); Opiate Screen,Urine Positive ng/ml (<300)
[2022-08-07 19:26] LABS: Phencyclidine Screen,Urine Negative ng/ml (<25)
== END ==
PROVIDERS: PCP Emergency Medicine; Visit Provider Emergency Medicine
DX: Z79.899 Other long term (current) drug therapy (principal)
CPT/HCPCS: 80305

== ENCOUNTER → 2022-10-11 18:25 | Outpatient (CLI) | payer MEDICARE, MEDICAID, SELFPAY ==
[2022-10-11 18:12] LABS: Amphetamine/Metha Screen,Urine Negative ng/ml (<1000)
[2022-10-11 18:13] LABS: Barbiturates Screen,Urine Negative ng/ml (<200)
[2022-10-11 18:14] LABS: Benzodiazepines Screen,Urine Negative ng/ml (<200); Cannabinoid Screen,Urine Negative ng/ml (<50)
[2022-10-11 18:15] LABS: Cocaine Screen,Urine Negative ng/ml (<300); Methadone Screen,Urine Negative ng/ml (<300)
[2022-10-11 18:16] LABS: Opiate Screen,Urine Positive ng/ml (<300)
[2022-10-11 18:17] LABS: Phencyclidine Screen,Urine Negative ng/ml (<25)
== END ==
PROVIDERS: PCP Emergency Medicine; Visit Provider Emergency Medicine
DX: Z79.899 Other long term (current) drug therapy (principal)
CPT/HCPCS: 80305

== ENCOUNTER → 2022-12-09 23:52 | Outpatient (CLI) | payer MEDICARE, MEDICAID, SELFPAY ==
[2022-12-09 18:30] LABS: Barbiturates Screen,Urine Negative ng/ml (<200)
[2022-12-09 18:31] LABS: Benzodiazepines Screen,Urine Negative ng/ml (<200); Cannabinoid Screen,Urine Negative ng/ml (<50)
[2022-12-09 18:32] LABS: Cocaine Screen,Urine Negative ng/ml (<300)
[2022-12-09 18:33] LABS: Methadone Screen,Urine Negative ng/ml (<300); Opiate Screen,Urine Negative ng/ml (<300)
[2022-12-09 18:34] LABS: Phencyclidine Screen,Urine Negative ng/ml (<25)
[2022-12-09 18:57] LABS: Basophils # 0.1 K/mm3 (0-0.2); Basophils % 0.8 % (0.1-2.0); Eosinophils # 0.1 K/mm3 (0.0-0.4); Eosinophils % 0.5 % (0.1-12.0); Hematocrit 49.9 % (37.0-47.0); Hemoglobin 16.2 g/dL (12.2-16.2); Lymphocytes # 3.5 K/mm3 (0.7-4.5); Lymphocytes % 23.5 % (10-50); Mean Corpuscular HGB Conc 32.5 g/dL (31.8-35.4); Mean Corpuscular Hemoglobin 29.9 pg (27.0-31.2); Mean Corpuscular Volume 91.9 fl (81-99); Mean Platelet Volume 8.2 fl (7.4-10.4); Monocytes # 0.9 K/mm3 (0.1-1.0); Neutrophils # 10.3 K/mm3 (1.8-7.8); Neutrophils % 69.3 % (37.0-80.0); Platelet Count 419 K/mm3 (142-424); Red Blood Count 5.43 M/mm3 (4.20-5.40); Red Cell Distribution Width 14.6 % (11.5-17.5); White Blood Count 14.8 K/mm3 (4.8-10.8)
[2022-12-09 19:59] LABS: Alanine Aminotransferase 32 U/L (12-78); Albumin Level 4.9 g/dl (3.5-5.0); Albumin/Globulin Ratio 1.6 (1.1-1.8); Alkaline Phosphatase 72 U/L (38-126); Anion Gap 13.9 mEq/L (5-15); Aspartate Amino Transferase 26 U/L (14-36); Bilirubin,Total 0.4 mg/dl (0.2-1.3); Blood Urea Nitrogen 11 mg/dl (7-17); Calcium 10.1 mg/dl (8.4-10.2); Carbon Dioxide 28 mmol/L (22.0-30.0); Chloride 108 mmol/L (98-107); Chol/HDL Ratio 6.5 (1-3.5); Cholesterol 213 mg/dl (140-200); Estimated Glomerular Filt Rate 46 ml/min (>60); GFR (African American) 55 ML/MIN (>60); Globulin 3.1 g/dL (1.3-3.2); Glucose 88 mg/dl (74-100); HDL Cholesterol 33 mg/dl (40-60); Potassium 3.9 mmoL/L (3.5-5.1); Sodium 146 mmol/L (136-145); Triglycerides 306 mg/dl (30-150); VLDL Cholesterol 61 mg/dL (0-40)
[2022-12-09 20:10] LABS: Direct LDL Cholesterol 133.05 mg/dL (100-129)
[2022-12-09 20:16] LABS: 25-OH Vitamin D, Total 46.9 ng/mL (30-100)
[2022-12-09 20:30] LABS: Thyroid Stimulating Hormone 0.62 uIU/mL (0.465-4.68)
[2022-12-09 20:50] LABS: Free T4 (Free Thyroxine) 0.82 ng/dl (0.78-2.19)
[2022-12-11 18:50] LABS: Amphetamine/Metha Screen,Urine Negative ng/ml (<1000)
== END ==
PROVIDERS: PCP Emergency Medicine; Visit Provider Emergency Medicine
DX: Z79.899 Other long term (current) drug therapy (principal); E66.9 Obesity, unspecified; R53.83 Other fatigue; E55.9 Vitamin D deficiency, unspecified; Z68.32 Body mass index [BMI] 32.0-32.9, adult
CPT/HCPCS: 80053; 80061; 80305; 82306; 84439; 84443; 85025

== ENCOUNTER → 2023-02-07 14:18 | Outpatient (CLI) | payer MEDICARE, MEDICAID, SELFPAY ==
[2023-02-07 20:21] LABS: Amphetamine/Metha Screen,Urine Negative ng/ml (<1000); Benzodiazepines Screen,Urine Negative ng/ml (<200)
[2023-02-07 20:22] LABS: Barbiturates Screen,Urine Negative ng/ml (<200)
[2023-02-07 20:23] LABS: Cannabinoid Screen,Urine Negative ng/ml (<50); Methadone Screen,Urine Negative ng/ml (<300)
[2023-02-07 20:24] LABS: Cocaine Screen,Urine Negative ng/ml (<300); Opiate Screen,Urine Positive ng/ml (<300)
[2023-02-07 20:25] LABS: Phencyclidine Screen,Urine Negative ng/ml (<25)
== END ==
PROVIDERS: PCP Emergency Medicine; Visit Provider Emergency Medicine
DX: Z79.899 Other long term (current) drug therapy (principal)
CPT/HCPCS: 80305

== ENCOUNTER → 2023-04-14 23:15 | Outpatient (CLI) | payer MEDICARE, MEDICAID, SELFPAY | PROVIDERS: PCP Emergency Medicine; Visit Provider Emergency Medicine | DX: Z79.899 Other long term (current) drug therapy (principal) ==

== ENCOUNTER → 2023-05-02 09:09 | Outpatient (CLI) | payer MEDICARE, MEDICAID, SELFPAY | PROVIDERS: PCP Emergency Medicine; Visit Provider Nurse Practitioner Family | DX: N39.0 Urinary tract infection, site not specified (principal); B95.0 Streptococcus, group A, as the cause of diseases classified elsewhere | CPT/HCPCS: 87086; 87088; 87186 ==

== ENCOUNTER → 2023-05-26 15:21 | Outpatient (CLI) | payer MEDICARE, SELFPAY ==
--- NOTE | 2023-05-26 15:30 | MM_ITS ---
PROCEDURE INFORMATION: Exam: MG Bilateral Screening 3D Mammography Exam date and time: 05/26/2023 3:20 PM Age: 63 years old Clinical indication: Screening examination. Her maternal grandmother had breast cancer. TECHNIQUE: Imaging protocol: Bilateral Screening tomosynthesis and 2D mammography including computer-aided detection (CAD) when performed. COMPARISON: No relevant prior studies available.If prior mammograms are provided, I am happy to add an addendum. FINDINGS: MAMMOGRAPHY: Breast composition: There are scattered areas of fibroglandular density. Mass: No suspicious mass. Architectural distortion: None. Calcifications: No suspicious calcifications. Asymmetric density: None. Skin thickening: None. Axillary adenopathy: None. IMPRESSION: No mammographic evidence of malignancy. Annual screening is recommended unless otherwise clinically indicated. ASSESSMENT: BI-RADS Category 1: Negative
== END ==
PROVIDERS: PCP Emergency Medicine; Visit Provider Emergency Medicine
DX: Z12.31 Encounter for screening mammogram for malignant neoplasm of breast
CPT/HCPCS: 77063; 77067

== ENCOUNTER → 2023-06-11 23:23 | Outpatient (CLI) | payer MEDICARE, SELFPAY ==
[2023-06-11 22:10] LABS: Amphetamine/Metha Screen,Urine Negative ng/ml (<1000)
[2023-06-11 22:11] LABS: Barbiturates Screen,Urine Negative ng/ml (<200); Benzodiazepines Screen,Urine Negative ng/ml (<200)
[2023-06-11 22:12] LABS: Cannabinoid Screen,Urine Negative ng/ml (<50)
[2023-06-11 22:13] LABS: Cocaine Screen,Urine Negative ng/ml (<300); Methadone Screen,Urine Negative ng/ml (<300)
[2023-06-11 22:14] LABS: Opiate Screen,Urine Negative ng/ml (<300); Phencyclidine Screen,Urine Negative ng/ml (<25)
== END ==
PROVIDERS: PCP Emergency Medicine; Visit Provider Emergency Medicine
DX: Z79.899 Other long term (current) drug therapy (principal)
CPT/HCPCS: 80305

== ENCOUNTER → 2023-07-24 11:54 | Outpatient (CLI) | payer MEDICARE, MEDICAID, SELFPAY | PROVIDERS: PCP Emergency Medicine; Visit Provider Emergency Medicine | DX: R82.90 Unspecified abnormal findings in urine (principal) | CPT/HCPCS: 87086 ==

== ENCOUNTER → 2023-09-03 23:35 | Outpatient (CLI) | payer MEDICARE, MEDICAID, SELFPAY ==
[2023-09-03 20:00] LABS: Amphetamine/Metha Screen,Urine Negative ng/ml (<1000); Barbiturates Screen,Urine Negative ng/ml (<200)
[2023-09-03 20:02] LABS: Benzodiazepines Screen,Urine Negative ng/ml (<200)
[2023-09-03 20:03] LABS: Cannabinoid Screen,Urine Negative ng/ml (<50)
[2023-09-03 20:04] LABS: Cocaine Screen,Urine Negative ng/ml (<300); Methadone Screen,Urine Negative ng/ml (<300)
[2023-09-03 20:05] LABS: Opiate Screen,Urine Positive ng/ml (<300)
[2023-09-03 20:06] LABS: Phencyclidine Screen,Urine Negative ng/ml (<25)
== END ==
PROVIDERS: PCP Emergency Medicine; Visit Provider Emergency Medicine
DX: Z79.899 Other long term (current) drug therapy (principal)
CPT/HCPCS: 80305

== ENCOUNTER → 2023-10-31 09:10 | Outpatient (CLI) | payer MEDICARE, MEDICAID, SELFPAY ==
[2023-10-31 19:59] LABS: Amphetamine/Metha Screen,Urine Negative ng/ml (<1000); Barbiturates Screen,Urine Negative ng/ml (<200)
[2023-10-31 20:00] LABS: Benzodiazepines Screen,Urine Negative ng/ml (<200)
[2023-10-31 20:01] LABS: Cannabinoid Screen,Urine Negative ng/ml (<50); Cocaine Screen,Urine Negative ng/ml (<300)
[2023-10-31 20:02] LABS: Methadone Screen,Urine Negative ng/ml (<300)
[2023-10-31 20:03] LABS: Opiate Screen,Urine Negative ng/ml (<300); Phencyclidine Screen,Urine Negative ng/ml (<25)
[2023-11-06 09:21] LABS: Gabapentin,Urine 535.8 ug/mL (.)
[2023-11-08 15:12] LABS: Alprazolam Negative (Cutoff=100); Benzodiazepines Positive ng/mL (Cutoff=100); Clonazepam Positive (.); Clonazepam Confirm 169 ng/mL (Cutoff=100); Flurazepam Negative (Cutoff=100); Lorazepam Negative (Cutoff=100); Midazolam Negative (Cutoff=100); Opiates Negative ng/mL (Cutoff=100); Temazepam Negative (Cutoff=100); Triazolam Negative (Cutoff=100)
== END ==
LOC: LAB.DROPOF 11-01 09:11
PROVIDERS: PCP Nurse Practitioner Family; Visit Provider Nurse Practitioner Family
DX: Z79.899 Other long term (current) drug therapy (principal)
CPT/HCPCS: 80307; 80346; 80361; G0480

== ENCOUNTER 2023-11-25 11:00 | Outpatient (CLI) | payer MEDICARE, MEDICAID, SELFPAY ==
[2023-11-26 21:04] LABS: Amphetamine/Metha Screen,Urine Negative ng/ml (<1000); Barbiturates Screen,Urine Negative ng/ml (<200); Benzodiazepines Screen,Urine Negative ng/ml (<200); Cannabinoid Screen,Urine Negative ng/ml (<50); Cocaine Screen,Urine Negative ng/ml (<300); Methadone Screen,Urine Negative ng/ml (<300); Opiate Screen,Urine Positive ng/ml (<300); Phencyclidine Screen,Urine Negative ng/ml (<25)
[2023-12-02 18:07] LABS: Alprazolam Negative (Cutoff=100); Benzodiazepines Positive ng/mL (Cutoff=100); Clonazepam Positive (.); Clonazepam Confirm 244 ng/mL (Cutoff=100); Codeine Negative (Cutoff=100); Flurazepam Negative (Cutoff=100); Hydrocodone Positive (.); Hydromorphone Positive (.); Lorazepam Negative (Cutoff=100); Midazolam Negative (Cutoff=100); Morphine Negative (Cutoff=100); Opiates Positive (.); Temazepam Negative (Cutoff=100); Triazolam Negative (Cutoff=100)
== END 2023-11-25 23:59 ==
LOC: LAB.DROPOF 11-26 11:02
PROVIDERS: PCP Nurse Practitioner Family; Visit Provider Nurse Practitioner Family
DX: Z79.899 Other long term (current) drug therapy (principal)
CPT/HCPCS: 80307; 80346; 80361; 80365; G0480

== ENCOUNTER 2023-12-23 19:30 | Outpatient (CLI) | payer MEDICARE, MEDICAID, SELFPAY ==
[2023-12-23 18:45] LABS: Basophils # 0.1 K/mm3 (0-0.2); Basophils % 0.6 % (0.1-2.0); Eosinophils # 0.1 K/mm3 (0.0-0.4); Eosinophils % 0.5 % (0.1-12.0); Hematocrit 48.3 % (37.0-47.0); Hemoglobin 16.3 g/dL (12.2-16.2); Lymphocytes # 4.3 K/mm3 (0.7-4.5); Lymphocytes % 30.1 % (10-50); Mean Corpuscular HGB Conc 33.7 g/dL (31.8-35.4); Mean Corpuscular Hemoglobin 31.1 pg (27.0-31.2); Mean Corpuscular Volume 92.1 fl (81-99); Mean Platelet Volume 8.4 fl (7.4-10.4); Neutrophils # 8.8 K/mm3 (1.8-7.8); Neutrophils % 61.8 % (37.0-80.0); Platelet Count 376 K/mm3 (142-424); Red Blood Count 5.25 M/mm3 (4.20-5.40); White Blood Count 14.2 K/mm3 (4.8-10.8)
[2023-12-23 19:49] LABS: Chloride 106 mmol/L (98-107); Sodium 140 mmol/L (136-145)
[2023-12-23 19:52] LABS: Alanine Aminotransferase 38 U/L (12-78); Albumin Level 4.7 g/dl (3.5-5.0); Albumin/Globulin Ratio 1.6 (1.1-1.8); Alkaline Phosphatase 65 U/L (38-126); Aspartate Amino Transferase 33 U/L (14-36); Bilirubin,Total 0.4 mg/dl (0.2-1.3); Blood Urea Nitrogen 11 mg/dl (7-17); Calcium 10.4 mg/dl (8.4-10.2); Carbon Dioxide 28 mmol/L (22.0-30.0); Cholesterol 251 mg/dl (140-200); Estimated Glomerular Filt Rate 50 ml/min (>60); GFR (African American) 61 ML/MIN (>60); Glucose 74 mg/dl (74-100); Total Protein,Serum 7.7 g/dl (6.3-8.2); Triglycerides 290 mg/dl (30-150); VLDL Cholesterol 58 mg/dL (0-40)
[2023-12-23 19:53] LABS: HDL Cholesterol 36 mg/dl (40-60)
[2023-12-23 20:10] LABS: 25-OH Vitamin D, Total 39.4 ng/mL (30-100); Direct LDL Cholesterol 144.94 mg/dL (100-129)
[2023-12-23 20:26] LABS: Thyroid Stimulating Hormone < 0.02 uIU/mL (0.465-4.68)
[2023-12-23 20:38] LABS: Hemoglobin A1C 5.4 % (4.0-6.0)
== END 2023-12-23 23:59 ==
LOC: LAB.DROPOF 19:31
PROVIDERS: PCP Nurse Practitioner Family; Visit Provider Nurse Practitioner Family
DX: E78.5 Hyperlipidemia, unspecified (principal); R73.03 Prediabetes; R53.83 Other fatigue; E55.9 Vitamin D deficiency, unspecified
CPT/HCPCS: 80053; 80061; 82306; 83036; 84443; 85025

== ENCOUNTER 2024-01-23 13:27 | Emergency (ER) | payer MEDICARE, SELFPAY ==
[2024-01-23 13:29] VITALS: BP 161/96; PULSE 86; RESP 16; TEMP 36.9; O2SAT 95; BMI 33.0
--- NOTE | 2024-01-23 13:50 | CT_ITS ---
FINAL REPORT TECHNIQUE: Postcontrast axial images through the abdomen and pelvis were performed. This study was performed with techniques to keep radiation doses as low as reasonably achievable, (ALARA). Individualized dose reduction techniques using automated exposure control or adjustment of mA and/or kV according to the patient's size were employed. CLINICAL HISTORY: RLQ abd pain COMPARISON: 10/23/2021 FINDINGS: Abdomen: There is mild atelectasis or scar at the bases. There is fatty infiltration of the liver. The spleen is unremarkable. The adrenals are normal. The pancreas is unremarkable. There are multiple nonobstructing right renal stones measuring up to 8 mm. Mild right renal scarring is identified. The aorta is normal in caliber. No free fluid or adenopathy is identified. No findings for mechanical bowel obstruction are identified. Mild vascular calcification is noted. Pelvis: The appendix is normal. There is a small umbilical hernia containing fat. The urinary bladder is unremarkable. No free fluid, free air, abscess or adenopathy is identified. IMPRESSION: Right nephrolithiasis. Reviewed, Interpreted and Dictated by Stefan Oh III, MD Transcribed by Naomie Mcintosh Authenticated and [facility]
--- NOTE | 2024-01-23 13:53 | ED_ITS ---
Discharge Plan Disposition Patient Disposition: Home, Self-Care Prescriptions Prescriptions: New nitrofurantoin monohyd/m-cryst 100 mg capsule 100 mg PO BID 5 Days Qty: 10 0RF Rx Instructions: must administer with a meal/food No Action gabapentin 600 mg tablet 600 mg PO TID Qty: 90 1RF clonazepam [Klonopin] 0.5 mg tablet 0.5 mg PO BID PRN (Reason: pain) Qty: 45 1RF Vraylar 1.5 mg capsule 1.5 mg PO DAILY Qty: 30 2RF cetirizine 10 mg tablet See Rx Instructions .ROUTE .COMPLEX Qty: 30 0RF Dose Instruction: TAKE ONE TABLET BY MOUTH ONCE A DAY Rx Instructions: TAKE ONE TABLET BY MOUTH ONCE A DAY cyclobenzaprine 10 mg tablet See Rx Instructions .ROUTE .COMPLEX Qty: 60 2RF Dose Instruction: TAKE ONE TABLET BY MOUTH EVERY 12 HOURS Rx Instructions: TAKE ONE TABLET BY MOUTH EVERY 12 HOURS fluticasone propionate 50 mcg/actuation spray,suspension See Rx Instructions .ROUTE .COMPLEX Qty: 16 0RF Dose Instruction: PLACE 1 SPRAY IN EACH NOSTRIL ONCE A DAY Rx Instructions: PLACE 1 SPRAY IN EACH NOSTRIL ONCE A DAY pravastatin 80 mg tablet See Rx Instructions .ROUTE .COMPLEX Qty: 30 2RF Dose Instruction: TAKE ONE TABLET BY MOUTH ONCE A DAY Rx Instructions: TAKE ONE TABLET BY MOUTH ONCE A DAY venlafaxine 150 mg capsule,extended release 24hr See Rx Instructions .ROUTE .COMPLEX Qty: 30 0RF Dose Instruction: TAKE ONE CAPSULE BY MOUTH ONCE A DAY Rx Instructions: TAKE ONE CAPSULE BY MOUTH ONCE A DAY venlafaxine 75 mg capsule,extended release 24hr See Rx Instructions .ROUTE .COMPLEX Qty: 30 0RF Dose Instruction: TAKE 1 CAPSULE BY MOUTH EVERY DAY WITH 150MG Rx Instructions: TAKE 1 CAPSULE BY MOUTH EVERY DAY WITH 150MG Ozempic 1 mg/dose (4 mg/3 mL) pen injector See Rx Instructions .ROUTE .COMPLEX Qty: 3 5RF Dose Instruction: INJECT 1MG SUBCUTANEOUSLY EVERY WEEK Rx Instructions: INJECT 1MG SUBCUTANEOUSLY EVERY WEEK hydrocodone-acetaminophen 7.5-325 mg tablet 1 tab PO Q8H PRN (Reason: pain) Qty: 90 0RF Referrals Follow up/Referrals: Ari Siegel APRN [Primary Care Provider] - See instructions Activity Restrictions/Add. Instructions Additional Instructions/Restrictions: Your CT scan was unremarkable from an emergency standpoint there were stones within the kidney that do not cause symptoms and there is also some mild hydronephrosis and hydroureter on the right side but no definitive stone that is in the collecting system that would be causing symptoms it is possible that you recently passed a stone. Your urine was not completely normal had some trace urine but not definitively positive for urinary tract infection either. Will however treat you for UTI. There is some diagnostic uncertainty but no emergent medical condition or surgical pathology was identified. Please follow-up with primary care doctor and return with any significant worsening of her symptoms. Clinical Impressions Clinical Impression: Abdominal pain, RLQ, Dysuria, UTI (urinary tract infection) Instructions Patient Instructions: DI for Urinary Tract Infection (UTI), DI for Urinary Tract Infection in Children Discharge ED Provider: Rochelle Lomeli General Adult HPI General Chief complaint: Urogenital-Female Stated complaint: right side pain, burning when urinating Time Seen by Provider: 01/23/24 13:44 Mode of Arrival: Ambulatory Source of Information: Patient Limitations: No Limitations Description of Symptoms (Recalled from ER Triage Doc. by RN): Patient reports right sided flank and front abdomen pain for 3 days. States she thinks she may have a UTI or a kidney stone. History of Present Illness HPI narrative: Patient is a 63-year-old female presenting today with right lower quadrant abdominal pain. She states that she had pain in this region that started 3 days ago and subsequently she started developing some dysuria. Has a history of kidney stones and urinary tract infection states that she has some similarities between both. Also denies having had abdominal surgery including any type of appendectomy hysterectomy etc. She denies any vaginal bleeding vaginal discharge blood in her urine constipation diarrhea etc. No fevers chills nausea vomiting etc. Related Data Previous Rx's Medication Instructions Recorded clonazepam 0.5 mg tablet (Klonopin) 0.5 mg PO BID PRN pain #45 tabs 12/23/23 gabapentin 600 mg tablet 600 mg PO TID #90 tabs 12/23/23 cariprazine 1.5 mg capsule 1.5 mg PO DAILY #30 caps 01/19/24 (Vraylar) cetirizine 10 mg tablet See Rx Instructions .Route 01/19/24 .COMPLEX #30 tabs cyclobenzaprine 10 mg tablet See Rx Instructions .Route 01/19/24 .COMPLEX #60 tabs fluticasone propionate 50 See Rx Instructions .Route 01/19/24 mcg/actuation nasal .COMPLEX #16 grams spray,suspension pravastatin 80 mg tablet See Rx Instructions .Route 01/19/24 .COMPLEX #30 tabs semaglutide 1 mg/dose (4 mg/3 mL) See Rx Instructions .Route 01/19/24 subcutaneous pen injector (Ozempic) .COMPLEX #3 mL venlafaxine 150 mg See Rx Instructions .Route 01/19/24 capsule,extended release 24 hr .COMPLEX #30 caps venlafaxine 75 mg capsule,extended See Rx Instructions .Route 01/19/24 release 24 hr .COMPLEX #30 caps hydrocodone 7.5 mg-acetaminophen 1 tab PO Q8H PRN pain #90 tabs 01/22/24 325 mg tablet nitrofurantoin 100 mg PO BID 5 days #10 caps 01/23/24 monohydrate/macrocrystals 100 mg capsule Allergies Allergy/AdvReac Type Severity Reaction Status Date / Time No Known Allergies Allergy Verified 12/23/23 15:23 [facility] Disclaimer: The information contained in this section may have been updated after the patient was seen, as this information can be updated by other users. Medical History Anxiety Degenerative disc disease, cervical Social History Smoking Status: Current every day smoker tobacco type: cigarettes packs per day: 1 alcohol intake: current counseling provided: provider counseling substance use type: denies use current occupational status: other Travel in the last 8 weeks: None household members: spouse housing: house current occupational exposures/hazards: No caffeine: Yes ROS Obtained: Yes All systems reviewed & no additional complaints except as documented Physical Exam General General appearance: alert and in no apparent distress Respiratory Respiratory exam: Present normal lung sounds bilaterally Cardiovascular Cardiovascular exam: Present regular rate and normal rhythm Abdominal Exam Abdominal exam: Present soft and tenderness (Right lower quadrant tenderness palpation no rebound or guarding no CVA tenderness bilaterally); Absent distention Neurological Exam Neurological exam: Present alert and oriented X3 Medical Decision Making Joon Inquiry Pt receiving controlled substance: No Vital Signs: 01/23/24 13:29 01/23/24 14:36 01/23/24 15:00 Temperature 98.4 F Temperature Source Oral Pulse Rate 92 H 91 H Pulse Rate [Radial] 86 Respiratory Rate 16 18 20 Blood Pressure 128/77 137/75 Blood Pressure [Right Arm] 161/96 H Blood Pressure Mean 94 90 Blood Pressure Mean [Right Arm] 117 Blood Pressure Source [Right Arm] Automatic Cuff Blood Pressure Position [Right Arm] Sitting 02 Sat by Pulse Oximetry 95 96 94 L Oxygen Delivery Method Room Air Lab Data Lab results reviewed: Yes I reviewed the patient's lab results. Lab Results 01/23/24 13:35: Urine Color Yellow, Urine Appearance Clear, Urine pH 5.5, Ur Specific [place] >= 1.030, Urine Protein 2+, Urine Glucose (UA) Negative, Urine Ketones Negative, Urine Blood 1+, Urine Nitrate Negative, Urine Bilirubin 1+ A, Urine Urobilinogen 0.2, Ur Leukocyte Esterase Negative, Urine RBC 10-20, Urine WBC 5-10, Ur Squamous Epith Cells 3-5, Urine Bacteria 1+, Hyaline Casts Occasional 01/23/24 13:55: WBC 10.9 H, RBC 5.30, Hgb 16.5 H, Hct 51.2 H, MCV 96.7, MCH 31.1, MCHC 32.1, RDW 15.1, Plt Count 380, MPV 8.1, Neut % (Auto) 62.6, Lymph % (Auto) 28.5, [place] % (Auto) 6.5, Eos % (Auto) 1.2, Baso % (Auto) 1.2, Neut # (Auto) 6.8, Lymph # (Auto) 3.1, [place] # (Auto) 0.7, Eos # (Auto) 0.1, Baso # (Auto) 0.1, Sodium 143, Potassium 4.4, Chloride 107, Carbon Dioxide 28, Anion Gap 12.4, BUN 12, Creatinine 1.00, Estimated Creat Clear 95, Estimated GFR 56 L, Est GFR ( Amer) 68, Glucose 134 H, Calcium 10.2, Total Bilirubin 0.6, AST 48 H, ALT 56, Alkaline Phosphatase 51, Total Protein 8.0, Albumin 4.6, Globulin 3.4 H, Albumin/Globulin Ratio 1.4 01/23/24 13:55 01/23/24 13:55 Orders (Tests/Meds): ED MEDICATIONS Generic Name Dose Route Start Last Admin Trade Name Frejuwan PRN Reason Stop Dose Admin Sodium Chloride 10 ml 01/23/24 14:33 Sodium Chloride 0.9% 10ml Flush Syringe IV 02/22/24 14:32 NEEDED PRN Maintain IV Site Discontinued Medications Generic Name Dose Route Start Last Admin Trade Name Frejuwan PRN Reason Stop Dose Admin Lactated Ringer's 1,000 mls @ 999 mls/hr 01/23/24 14:00 01/23/24 14:01 Lactated Ringer's 1000 Ml Bag IV 01/23/24 15:00 999 mls/hr .Q1H1M BUZZ Administration Iopamidol 75 ml 01/23/24 14:28 01/23/24 14:29 Iopamidol-370 (76%);100ml Bottle IV 01/23/24 14:29 75 ml ONCE ONE Administration Morphine Sulfate 4 mg 01/23/24 13:50 01/23/24 14:01 Morphine 4mg/Ml Syringe IV 01/23/24 13:51 4 mg ONCE ONE Administration Ondansetron HCl 4 mg 01/23/24 13:50 01/23/24 14:01 Ondansetron 4mg/2ml Vial IV 01/23/24 13:51 4 mg ONCE ONE Administration Sodium Chloride 10 ml 01/23/24 14:28 01/23/24 14:29 Sodium Chloride 0.9% 10ml Syr (Rad Only) IV 01/23/24 14:29 10 ml ONCE ONE Administration ORDERS Category Date Time Status CT abdomen pelvis w con Stat Cat Scan 01/23/24 13:50 Completed CBC w/Auto Diff [Complete Blood Count Auto Diff] Stat Lab 01/23/24 13:55 Completed CMP [Comprehensive Metabolic Panel] Stat Lab 01/23/24 13:55 Completed UA [Urinalysis and Microscopic] Stat Lab 01/23/24 13:35 Completed Medical Decision Narrative: 63-year-old female with right lower quadrant abdominal pain differential includes urinary tract infection, kidney stone, appendicitis, ovarian torsion ovarian cyst rupture, malignancy, colitis diverticulitis etc. Will get a contrasted CT scan to further evaluate this. IV fluids pain medicine nausea medicine have been administered and will reassess. Reassessment CT scan performed which I personally interpreted shows no acute pathology however on my interpretation there is some mild hydronephrosis and hydroureter on the right side but no definitive stones within the collecting system it is possible she recently passed a stone. No other pathology in the right lower quadrant identified. Formal read which shows nephrolithiasis but nothing in the collecting system. She does have an abnormal urine with trace blood and some whites however leukocyte esterase and nitrite are negative not definitively UTI. Given the fact there is no alternative diagnosis we will treat this as a UTI. She understands there is some diagnostic uncertainty and she will follow-up with primary care doctor and will take her antibiotic as prescribed. She was discharged in stable and improved condition. Serial exams are benign. Critical Care Critical Care Time Critical Care Time: No
[2024-01-23 13:55] LABS: Microscopic, Urine URINE MICROSCOPIC (MICROSCOPIC)
[2024-01-23 13:57] LABS: Appearance,Urine CLEAR (Clear); Blood, Urine 1+ (Negative); Color,Urine YELLOW (Yellow); Glucose,Urine (UA) Negative (Negative); Ketones,Urine Negative (Negative); Leukocyte Esterase,Urine Negative (Negative); Nitrate,Urine Negative (Negative); PH,Urine 5.5 (5.0-8.5); Protein,Urine 2+ (Negative); Specific Gravity, Urine >= 1.030 (1.005-1.030); Urobilinogen,Urine 0.2 EU/dl (0.2)
[2024-01-23 14:00] LABS: Bilirubin,Urine 1+ (Negative)
[2024-01-23] MEDS: MORPHINE 4MG/ML SYRINGE 4 MG IV (14:01)
[2024-01-23] MEDS: LACTATED RINGERS 1000ML 1,000 ML 999 ML IV (14:01)
[2024-01-23] MEDS: ONDANSETRON 4MG/2ML VIAL 4 MG IV (14:01)
[2024-01-23 14:07] LABS: Chloride 107 mmol/L (98-107); Potassium 4.4 mmoL/L (3.5-5.1); Sodium 143 mmol/L (136-145)
[2024-01-23 14:09] LABS: Bacteria,Urine 1+ /lpf; Hyaline Casts,Urine Occasional #/lpf (0)
[2024-01-23 14:10] LABS: Alanine Aminotransferase 56 U/L (12-78); Albumin Level 4.6 g/dl (3.5-5.0); Albumin/Globulin Ratio 1.4 (1.1-1.8); Alkaline Phosphatase 51 U/L (38-126); Anion Gap 12.4 mEq/L (5-15); Aspartate Amino Transferase 48 U/L (14-36); Bilirubin,Total 0.6 mg/dl (0.2-1.3); Blood Urea Nitrogen 12 mg/dl (7-17); Carbon Dioxide 28 mmol/L (22.0-30.0); Creatinine Clearance Estimated 95 mL/min (50-200); Estimated Glomerular Filt Rate 56 ml/min (>60); GFR (African American) 68 ML/MIN (>60); Globulin 3.4 g/dL (1.3-3.2)
[2024-01-23 14:11] LABS: Calcium 10.2 mg/dl (8.4-10.2); Glucose 134 mg/dl (74-100)
[2024-01-23] MEDS: IOPAMIDOL-370 (76%);100ML BOTTLE 75 ML IV (14:29)
[2024-01-23] MEDS: SODIUM CHLORIDE 0.9% 10ML SYR (RAD ONLY) 10 ML IV (14:29)
[2024-01-23 14:36] VITALS: BP 128/77; PULSE 92; RESP 18; O2SAT 96
[2024-01-23 14:51] LABS: Basophils # 0.1 K/mm3 (0-0.2); Basophils % 1.2 % (0.1-2.0); Eosinophils # 0.1 K/mm3 (0.0-0.4); Eosinophils % 1.2 % (0.1-12.0); Hematocrit 51.2 % (37.0-47.0); Hemoglobin 16.5 g/dL (12.2-16.2); Lymphocytes # 3.1 K/mm3 (0.7-4.5); Lymphocytes % 28.5 % (10-50); Mean Corpuscular HGB Conc 32.1 g/dL (31.8-35.4); Mean Corpuscular Hemoglobin 31.1 pg (27.0-31.2); Mean Corpuscular Volume 96.7 fl (81-99); Mean Platelet Volume 8.1 fl (7.4-10.4); Monocytes # 0.7 K/mm3 (0.1-1.0); Monocytes % 6.5 % (1.7-9.3); Neutrophils # 6.8 K/mm3 (1.8-7.8); Neutrophils % 62.6 % (37.0-80.0); Platelet Count 380 K/mm3 (142-424); Red Cell Distribution Width 15.1 % (11.5-17.5); White Blood Count 10.9 K/mm3 (4.8-10.8)
[2024-01-23 15:00] VITALS: BP 137/75; PULSE 91; RESP 20; O2SAT 94
[2024-01-23 15:30] VITALS: BP 119/82; PULSE 91; RESP 18; TEMP 36.8; O2SAT 94
== END 2024-01-23 15:52 | disposition home or self-care (01) ==
PROVIDERS: Emergency Provider Student in an Organized Health Care Education/Training Program; PCP Nurse Practitioner Family
DX: N39.0 Urinary tract infection, site not specified (principal); R10.31 Right lower quadrant pain; M50.30 Other cervical disc degeneration, unspecified cervical region; F41.9 Anxiety disorder, unspecified; F17.210 Nicotine dependence, cigarettes, uncomplicated
CPT/HCPCS: 74177; 80053; 81001; 85025; 96361; 96374; 96375; 99285; J2405; Q9967